=== PATIENT | female | born 1950 | race African-American/Black ===

== ENCOUNTER 2025-01-23 09:19 | Outpatient (AMB) | payer MEDICARE, MEDICAID, SELFPAY ==
--- NOTE | 2025-01-23 09:20 | MHC.PC.OV ---
Vital Signs 01/23/25 09:21 Height 5 ft 2.5 in Weight 160 lb 4 oz BMI 28.8 BP 136/78 Blood Pressure Location Lt brachial Position Sitting Respiration 16 Pulse 82 Pulse Source Pulse Oximeter Temp 96.8 F Temp Source Temporal Artery Scan Pulse Oximetry (%) 97 Oxygen Delivery Method Room Air Intake Visit Reasons: Routine-Elizabeth pt Colorer Hides And Skins Required: No Accompanied by: Self / Same As Patient Allergies fluticasone (From Flonase) Allergy (Intermediate, Verified 01/23/25 09:26) cough up blood lisinopril Allergy (Intermediate, Verified 01/23/25 09:26) cough up blood losartan Allergy (Intermediate, Verified 01/23/25 09:) cough up blood Penicillins Allergy (Verified 01/23/25 09:26) Unknown Medication List - Last Reconciled 01/23/25 by Susan Johnson MD albuterol sulfate 90 mcg/actuation 2 puffs inhalation Q4H PRN amlodipine 10 mg PO DAILY cholecalciferol (vitamin D3) 50 mcg PO DAILY diclofenac sodium 1% 2 grams topical QID ipratropium-albuterol 0.5 mg-3 mg(2.5 mg base)/3 mL mL inhalation QID PRN ketoconazole 2% topical Q3D ketorolac 0.5% 1 drp ophthalmic (eye) metoprolol succinate ER 50 mg PO DAILY propylene glycol 0.6% (Systane Complete) 1 drp ophthalmic (eye) BID PRN rosuvastatin 5 mg PO DAILY warfarin mg PO Tobacco use date assessed: 01/23/25 Fall risk assessment: No Falls in past year Last assessed Fall Risk: 01/23/25 Dental Screening Dental Screen Date: 01/23/25 Did you have a dental visit in the last 12 months?: Yes Did you have a dental problem in the last 6 months where you did not have access to dental care?: No Was dental information given to patient?: Patient has dentist HPI HPI Comments History of Present Illness Details The patient is a 74 year old individual presenting to re-establish care and to discuss multiple medical concerns. Low back pain: The patient has experienced sharp lower back pain with spasms for a few months, beginning before October. The patient reports a sensation of warmth in the area and has not had an X-ray during a previous evaluation. For pain management, the patient has been using a hot water bottle, which resulted in a surface burn on the back. Dizziness: The patient recently started experiencing dizziness, particularly with positional changes such as moving too fast or bending over. The patient denies feeling dizzy while walking and reports adequate hydration, drinking about seven cups of water daily. There has been an associated mild headache or head pressure. Superficial burn: The patient sustained a superficial burn on the back from the direct application of a hot water bottle used for pain relief. Atrial fibrillation/CKD stage III/hyperparathyroidism: The patient has a history of atrial fibrillation, managed by Dr. Pulido at [facility] and is taking warfarin 1 mg daily with a last reported INR of 2.4. Chronic kidney disease is managed by Dr. Boateng, and renal function is reported as stable. Past labs showed a slightly high parathyroid level, but calcium was normal. The patient is followed for COPD and sleep apnea, using an ASV machine which has improved tiredness, and also uses a nebulizer as needed. Hypertension is managed with metoprolol 50 mg and amlodipine 10 mg daily. Hyperlipidemia is treated with rosuvastatin 5 mg. Social History: - Functional Status: The patient has reduced some activities, such as taking out barrels, due to back pain. - Home Support: The patient receives home help on Mondays for 1.5 hours and Wednesdays for 1 hour. - Exercise: The patient performs simple exercises and stretches at home and walks short distances in the neighborhood, being careful not to overexert. - Diet: The patient is disciplined with diet, monitoring sodium intake and avoiding high-sugar or high-fat snacks. - Hydration: The patient reports drinking approximately seven cups of water daily. Diagnostic Results: - Labs (from prior visit at [facility]): Calcium was normal; parathyroid hormone was slightly elevated. - INR: Last reading was 2.4- pt is established with [facility] - Imaging: A prior mammogram abnormality has since resolved on follow-up imaging- done at [facility] Medical History (Updated 01/23/25 @ 17:27 by Susan Johnson MD) Hyperparathyroidism COPD (chronic obstructive pulmonary disease) Stroke Dysarthria, post-stroke Atrial fibrillation Pacemaker Lower back pain AUREA (obstructive sleep apnea) Iron deficiency anemia Congestive heart failure CKD (chronic kidney disease), stage III Primary hypertension Surgical History (Updated 01/23/25 @ 09:50 by Susan Johnson MD) H/O: hysterectomy Social History Housing: House Patient Tobacco Use Status: Never used Tobacco e-Cigarette/Vaping Use: Never Used Current occupational status: retired Questionnaire PHQ-9 Over the last 2 weeks, how often have you been bothered by any of the following problems? 1. Little interest or pleasure in doing things: not at all 2. Feeling down, depressed, or hopeless: not at all 3. Trouble falling or staying asleep, or sleeping too much: not at all 4. Feeling tired or having little energy: not at all 5. Poor appetite or overeating: not at all 6. Feeling bad about yourself - or that you are a failure or have let yourself or your family down: not at all 7. Trouble concentrating on things, such as reading the newspaper or watching television: not at all 8. Moving or speaking so slowly that other people could have noticed. Or the opposite - being so fidgety or restless that you have been moving around a lot more than usual: not at all 9. Thoughts that you would be better off or of hurting yourself in some way: not at all Total score: 0 Depression Screening Interpretation: Negative Depression Screening Done: Yes 63350 - PHQ-9 Billing: Yes Source: Developed by Drs. Samir Tineo, Flower Spaulding, Gordo Crystal and colleagues, with an educational felicita from [employer]. AUDIT C Alcohol Use Questionnaire (AUDIT-C) 1. How often do you have a drink containing alcohol?: Never 3. How often do you have six or more drinks on one occasion?: Never Total Score: 0 Review of Systems Narrative Review of Systems - Constitutional: Reports feeling better and denies fatigue -Neurological: Reports intermittent dizziness with positional changes and mild headache/head pressure. - Musculoskeletal: Reports sharp lower back pain with spasms and warmth. - Integumentary: Denies active issues but reports a history of scalp itching. Physical exam (Primary Care) Vital Signs: Last Vital Signs Temp 96.8 F 01/23/25 09:21 Pulse 82 01/23/25 09:21 Resp 16 01/23/25 09:21 BP 136/78 01/23/25 09:21 Pulse Ox 97 01/23/25 09:21 Oxygen Delivery Method Room Air 01/23/25 09:21 BMI result Body Mass Index 28.8 Tobacco/Smoking Status: Tobacco use Status Tobacco use date assessed 01/23/25 01/23/25 09:26 Patient Tobacco Use Status Never used Tobacco 01/23/25 09:33 e-Cigarette/Vaping Use Never Used 01/23/25 09:33 PHQ-9: PHQ-9 Score PHQ-9: Total score 0 01/23/25 10:29 Depression Screening Interpretation: Negative Narrative Physical Exam - Head/Ears/Nose/Throat: Bilateral ears are clear, without fluid. - Lungs: Clear to auscultation bilaterally, no wheezing. - Cardiovascular: Normal heart sounds, regular beat, and a soft murmur noted. - Abdomen: Soft with normal bowel sounds, non-tender, non distended. - Extremities: No swelling. - Back: Presence of a superficial burn; patient reports deep pain with palpation. Coding Level of Care Code Est Pt Level 5 (15792) Complex visit Add On G2211 Diagnoses Low back pain without sciatica, unspecified back pain laterality, unspecified chronicity M54.50 Chronicity: unspecified Back pain laterality: unspecified Sciatica presence: without sciatica Hyperparathyroidism E21.3 Atrial fibrillation I48.91 Primary hypertension I10 CKD (chronic kidney disease), stage III N18.30 Additional Codes PHQ-9 - 60217 - PHQ-9 Billing: Yes ([id number]) Time Spent (min) 48 Comment chart review, document prep, counseling, ordering of tests, physical examination Assessment & Plan Assessment & Plan (1) Lower back pain: Code(s): M54.50 - Low back pain, unspecified Category: Medical Qualifiers: Chronicity: unspecified Back pain laterality: unspecified Sciatica presence: without sciatica Qualified Code(s): M54.50 - Low back pain, unspecified (2) Hyperparathyroidism: Code(s): E21.3 - Hyperparathyroidism, unspecified Category: Medical (3) Atrial fibrillation: Code(s): I48.91 - Unspecified atrial fibrillation Category: Medical (4) Primary hypertension: Code(s): I10 - Essential (primary) hypertension Category: Medical (5) CKD (chronic kidney disease), stage III: Code(s): N18.30 - Chronic kidney disease, stage 3 unspecified Category: Medical Plan Assessment and Plan 1. Low Back Pain - An X-ray of the lumbar spine will be ordered. 2. Dizziness - The symptoms are consistent with positional dizziness. - The patient is advised to move slowly when changing positions. - Lab work will be ordered to check electrolytes. 3. Superficial Burn of the Back - This is a result of using a hot water bottle directly on the skin. - The burn does not appear infected. - A prescription for sulfadiazine cream will be sent to the pharmacy to aid in healing. - The patient was counseled on using a towel as a barrier for heat application in the future. 4. Chronic Conditions Management (Atrial Fibrillation, CKD, COPD, Sleep Apnea, HTN, Hyperlipidemia) - The patient is stable on current medications and will continue management with specialists. - The prescription for the nebulizer solution will be resent to the pharmacy. - A request will be made for recent sleep clinic notes. - Labs will be drawn to recheck parathyroid levels among other values. 5. Health Maintenance - The patient will follow up in three months for continued management. Plan - Order lumbar spine X-ray to evaluate chronic low back pain. - Order labs, including electrolytes and a recheck of parathyroid hormone. - Prescribe sulfadiazine cream 1% for the superficial burn on the back, to be applied twice daily for one week. 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 Will evaluate further if ongoing. Discussion Notes I have discussed the plan to re-establish care and manage the patient's ongoing health concerns. I explained that the dizziness is likely positional and advised the patient to move slowly to prevent symptoms. We discussed the superficial burn on the patient's back, which was caused by a hot water bottle; I advised against direct heat application and prescribed a cream to help it heal. I informed the patient that I am ordering a lower back X-ray to investigate the chronic pain and lab work to check electrolytes and other values. Patient Instructions - Please have your blood drawn today in the lab. - An X-ray of your lower back has been ordered to help figure out the cause of your pain. - A prescription for Silvadene cream has been sent to your pharmacy. Apply a thin layer to the burn on your back two times a day for about a week to help it heal. - To help with dizziness, make sure to get up slowly from sitting or lying down. Avoid bending forward or making other quick motions. Orders: Orders Magnesium Today D50.9 - Iron deficiency anemia, unspecified, E21.3 - Hyperparathyroidism, unspecified, I10 - Essential (primary) hypertension, I48.91 - Unspecified atrial fibrillation, I50.9 - Heart failure, unspecified, N18.30 - Chronic kidney disease, stage 3 unspecified TSH reflex Free T4 Today D50.9 - Iron deficiency anemia, unspecified, E21.3 - Hyperparathyroidism, unspecified, I10 - Essential (primary) hypertension, I48.91 - Unspecified atrial fibrillation, I50.9 - Heart failure, unspecified, N18.30 - Chronic kidney disease, stage 3 unspecified Hemoglobin A1c Today I10 - Essential (primary) hypertension, N18.30 - Chronic kidney disease, stage 3 unspecified XR lumbar spine 2-3V Today M54.50 - Low back pain, unspecified Complete Blood Count Auto Diff Today D50.9 - Iron deficiency anemia, unspecified, E21.3 - Hyperparathyroidism, unspecified, I10 - Essential (primary) hypertension, I48.91 - Unspecified atrial fibrillation, I50.9 - Heart failure, unspecified, N18.30 - Chronic kidney disease, stage 3 unspecified Comprehensive Met. Panel Today D50.9 - Iron deficiency anemia, unspecified, E21.3 - Hyperparathyroidism, unspecified, I10 - Essential (primary) hypertension, I48.91 - Unspecified atrial fibrillation, I50.9 - Heart failure, unspecified, N18.30 - Chronic kidney disease, stage 3 unspecified IRON PROFILE Today D50.9 - Iron deficiency anemia, unspecified, E21.3 - Hyperparathyroidism, unspecified, I10 - Essential (primary) hypertension, I48.91 - Unspecified atrial fibrillation, I50.9 - Heart failure, unspecified, N18.30 - Chronic kidney disease, stage 3 unspecified Ferritin Today D50.9 - Iron deficiency anemia, unspecified, E21.3 - Hyperparathyroidism, unspecified, I10 - Essential (primary) hypertension, I48.91 - Unspecified atrial fibrillation, I50.9 - Heart failure, unspecified, N18.30 - Chronic kidney disease, stage 3 unspecified Vitamin B12 Today D50.9 - Iron deficiency anemia, unspecified, E21.3 - Hyperparathyroidism, unspecified, I10 - Essential (primary) hypertension, I48.91 - Unspecified atrial fibrillation, I50.9 - Heart failure, unspecified, N18.30 - Chronic kidney disease, stage 3 unspecified Vitamin D 25-OH Total Today D50.9 - Iron deficiency anemia, unspecified, E21.3 - Hyperparathyroidism, unspecified, I10 - Essential (primary) hypertension, I48.91 - Unspecified atrial fibrillation, I50.9 - Heart failure, unspecified, N18.30 - Chronic kidney disease, stage 3 unspecified Folate Today D50.9 - Iron deficiency anemia, unspecified, E21.3 - Hyperparathyroidism, unspecified, I10 - Essential (primary) hypertension, I48.91 - Unspecified atrial fibrillation, I50.9 - Heart failure, unspecified, N18.30 - Chronic kidney disease, stage 3 unspecified Parathyroid Hormone Intact Today E21.3 - Hyperparathyroidism, unspecified Medications: New ketoconazole 2% 1 appl topical Q3D 120 mL 11RF ipratropium-albuterol 0.5 mg-3 mg(2.5 mg base)/3 mL 3 mL inhalation QID PRN 180 mL 11RF dyspnea J44.9 - Chronic obstructive pulmonary disease, unspecified silver sulfadiazine 1% apply a 1.5 mm thickness 1 appl topical BID 50 grams 0RF back burn Patient Instructions: GET LABS TODAY GET XRAYS
[2025-01-23 09:21] VITALS: BP 136/78; PULSE 82; RESP 16; TEMP 36; O2SAT 97; BMI 28.8
--- OUTSIDE RECORDS SUMMARY | 2025-01-23 12:04 | XMS_ITS | Encounter Summary ---
Author Organization [facility] Address [address] [facility] [address] [address] [place] [address] Phone Care Team Providers Care Mirror Installer Name Role Phone Susan Johnson MD Primary Care Provider [phone]- [phone] Encounter Details Date Type Department Care Team (Late Contact Info) Description 08/12/2020 Orders Only [facility] [address] [facility] [address] [place] [phone] Jignesh Cox MD [address] [facility] [address] [place] [phone] Hypertensive chronic kidney disease, unspecified, with chronic kidney disease stage I through stage IV, or unspecified; Stage 3b chronic kidney disease (HCC) Social History Tobacco Use Types Packs/Day Years Used Date Smoking Tobacco: Never Smokeless Tobacco: Never Alcohol Use Standard Drinks/Week Comments No 0 (1 standard drink = 0.6 oz pur e alcohol) Comments Unknown Sex and Gender Information Value Date Recorded Sex Assigned at Not on file Legal Sex Female 5:08 PM EST Gender Identity Not on file Sexual Orientation Not on file documented as of this encounter Plan of Treatment Upcoming Encounters Date Type Department Care Team (Late st Contact Info) Description 04/23/2025 1:30 PM EST Office Visit [facility], [address] [place] [phone] Manny Boateng MD [address] [place] [address] documented as of this encounter Procedures Procedure Name Priority Date/Time Associated Diagnosis Comments PROTEIN / CREATININE RATIO, URINE Routine 10/21/2020 10:21 AM EDT Hypertensive chronic kidney disease, unspecified, with chronic kidney disease stage I through stage IV, or unspecified Stage 3b chronic kidney disease (HCC) VITAMIN D 25 HYDROXY Routine 10/21/2020 10:21 AM EDT Hypertensive chronic kidney disease, unspecified, with chronic kidney disease stage I through stage IV, or unspecified Stage 3b chronic kidney disease (HCC) PTH, INTACT Routine 10/21/2020 10:21 AM EDT Hypertensive chronic kidney disease, unspecified, with chronic kidney disease stage I through stage IV, or unspecified Stage 3b chronic kidney disease (HCC) MAGNESIUM Routine 10/21/2020 10:21 AM EDT Hypertensive chronic kidney disease, unspecified, with chronic kidney disease stage I through stage IV, or unspecified Stage 3b chronic kidney disease (HCC) RENAL FUNCTION PANEL Routine 10/21/2020 10:21 AM EDT Hypertensive chronic kidney disease, unspecified, with chronic kidney disease stage I through stage IV, or unspecified Stage 3b chronic kidney disease (HCC) documented in this encounter Results * Magnesium (10/21/2020 10:21 AM EDT) Magnesium 2.1 (1.6-2.3) mg/dL [facility] Comment: Testing performed or reported by [facility], a Service of [facility], [address] [place] [address] Megha Arauz MD, Software Development Intern [facility]# [id number] Blood specimen (specimen) Venous blood / Unknown 10/21/2020 10:21 AM EDT 10/21/2020 10:22 AM EDT us Jignesh Cox MD LAB BLOOD ORDERABLES Final Resu lt [facility] * PTH, intact (10/21/2020 10:21 AM EDT) PTH, Intact 48 (15-65) PG/ML [facility] Comment: Testing performed or reported by [facility], a Service of [facility], [address] [place] [address] Megha Arauz MD, Software Development Intern CLIA# [id number] Blood specimen (specimen) Venous blood / Unknown 10/21/2020 10:21 AM EDT 10/21/2020 10:22 AM EDT Jignesh Cox MD LAB BLOOD ORDERABLES Final Resu lt Performing Organization Address [facility] Co de Phone Number [facility] * (ABNORMAL) Vitamin D 25 hydroxy (10/21/2020 10:21 AM EDT) Vitamin D, 25-Hydroxy 58.7(H) (20-50) NG/ML [facility] Comment: Testing performed or reported by [facility], a Service of [facility], [address] [place] [address] Megha Arauz MD, Software Development Intern CLIA# [id number] Blood specimen (specimen) Venous blood / Unknown 10/21/2020 10:21 AM EDT 10/21/2020 10:22 AM EDT us Jignesh Cox MD LAB BLOOD ORDERABLES Final Resu lt Performing Organization Address [facility] Co de Phone Number [facility] * Urine Protein / creatinine ratio (10/21/2020 10:21 AM EDT) Protein/Creat ine Ratio Unable to calculate (0-0.2) [facility] Protein, Urine <4 MG/DL [facility] Creatinine, Urine 32.8 MG/DL [facility] Comment: Testing performed or reported by [facility], a Service of [address] [address] Megha Arauz MD, Software Development Intern CLIA# [id number] Urine specimen (specimen) Urine specimen obtained by clean catch procedure / Unknown 10/21/2020 10:21 AM EDT 10/21/2020 10:23 AM EDT us Jignesh Cox MD LAB URINE ORDERABLES Final Resu lt [facility] * (ABNORMAL) Renal function panel (10/21/2020 10:21 AM EDT) Glucose 87 (70-99) MG/DL [facility] BUN 30(H) (8-23) MG/DL [facility] Creatinine 1.5(H) (0.5-1.0) MG/DL [facility] Sodium 143 (133-145) MMOL/L [facility] Potassium 4.5 (3.6-5.2) MMOL/L [facility] Chloride 104 (98-107) MMOL/L [facility] Bicarbonate (CO2) 29 (22-29) MMOL/L [facility] Anion Gap 10 (4-17) [facility] Albumin 4.1 (3.4-4.8) GM/DL [facility] Calcium 10.0 (8.6-10.5) MG/DL [facility] Phosphorus, Serum 3.4 (2.5-4.5) MG/DL [facility] Est GFR Non 36 ML/MIN/1.7 3 M2 [facility] Comment: Creatinine based estimated glomerular filtration rate (eGFR) is calculated using the Chronic Kidney Disease Epidemiology Collaboration (CKD-EPI). The CKD-EPI creatinine equation has not been validated in children (<18 years), women or in some racial or ethnic subgroups other than Caucasians and Americans. EST GFR 42 ML/MIN/1.7 3 M2 [facility] Comment: Creatinine based estimated glomerular filtration rate (eGFR) is calculated using the Chronic Kidney Disease Epidemiology Collaboration (CKD-EPI). The CKD-EPI creatinine equation has not been validated in children (<18 years), women or in some racial or ethnic subgroups other than Caucasians and Americans. Testing performed or reported by [facility], a Service of [facility], [address] [place] [address] Megha Arauz MD, Software Development Intern [facility]# [id number] Blood specimen (specimen) Venous blood / Unknown 10/21/2020 10:21 AM EDT 10/21/2020 10:22 AM EDT us Jignesh Cox MD LAB BLOOD ORDERABLES Final Resu lt [facility] documented in this encounter Visit Diagnoses Diagnosis Hypertensive chronic kidney disease, unspecified, with chronic kidney disease stage I through stage IV, or unspecified Stage 3b chronic kidney disease (HCC) documented in this encounter Care Teams Mirror Installer Relationship Specialty Start Date End Date Susan Johnson MD [address] [place], [place] PCP - General 03/16/20 documented as of this encounter
--- OUTSIDE RECORDS SUMMARY | 2025-01-23 12:04 | XMS_ITS | Encounter Summary ---
Author Organization [facility] Address [address] [place] [address] Phone Care Team Providers Care Crab Fisherman Name Role Phone Susan Johnson MD Primary Care Provider [phone]- [phone] Encounter Details Date Type Department Care Team (Late st Contact Info) Description 06/04/2021 Documentation Only [facility] [address] [place] [phone] Edinson Munoz MD Social History Tobacco Use Types Packs/Day Years [...] Visit [facility] [address] [place] [address] Manny Boateng MD [address] [place] [address] [place] [phone] documented as of this encounter Visit Diagnoses Not on filedocumented in this encounter Care Teams Crab Fisherman Relationship Specialty Start Date End Date Susan Johnson MD [address] [place], [place] PCP - General 03/16/20 documented as of this encounter
--- OUTSIDE RECORDS SUMMARY | 2025-01-23 12:04 | XMS_ITS | Encounter Summary ---
Author Organization [facility] Address [address] [place] [address] Phone Care Team Providers Care Parts Sales Manager Name Role Phone Susan Johnson MD Primary Care Provider +1- [phone] Encounter Details Date Type Department Care Team (Late st Contact Info) Description 06/10/2021 Documentation Only [facility] [address] [place] [address] Manny Boateng MD [address] [place] [address] Dr. Candelaria [place] [address] Social History Tobacco Use Types Packs/Day Years [...] Visit [facility] [address] [place] [address] Manny Boateng MD [address] [place] [address] Dr. Candelaria [place] [address] documented as of this encounter Visit Diagnoses Not on filedocumented in this encounter Care Teams Parts Sales Manager Relationship Specialty Start Date End Date Susan Johnson MD [address] [place], [place] PCP - General 03/16/20 documented as of this encounter
--- OUTSIDE RECORDS SUMMARY | 2025-01-23 12:04 | XMS_ITS | Encounter Summary ---
Author Organization [facility] Address [address] [place] [address] Phone Care Team Providers Care Research Engineer Marine Equipment Name Role Phone Susan Johnson MD Primary Care Provider +1- [phone] Encounter Details Date Type Department Care Team (Late st Contact Info) Description 12/20/2021 Documentation Only [facility] [address] [place] [address] Manny Boateng MD [address] [place] [address] [place] [address] Social History Tobacco Use Types [...] on file documented as of this encounter Functional Status documented as of this encounter Plan of Treatment Upcoming Encounters Date Type Department Care Team (Late st Contact Info) Description 04/23/2025 1:30 PM EST Office Visit [facility] [address] [place] [address] Manny Boateng MD [address] [place] [address] [place] [address] documented as of this encounter Visit Diagnoses Not on filedocumented in this encounter Care Teams Research Engineer Marine Equipment Relationship Specialty Start Date End Date Susan Johnson MD [address] [place], [place] PCP - General 03/16/20 documented as of this encounter
--- OUTSIDE RECORDS SUMMARY | 2025-01-23 12:04 | XMS_ITS | Encounter Summary ---
Author Organization [facility] Address [address] [place] [address] Phone Care Team Providers Care 3D Modeler Name Role Phone Susan Johnson MD Primary Care Provider +1- [phone] Encounter Details Date Type Department Care Team (Late st Contact Info) Description 12/20/2021 Documentation Only [facility] [address] [place] [address] Manny Boateng MD [address] [place] [address] [place] [address] Social History Tobacco Use Types [...] Visit [facility] [address] [place] [address] Manny Boateng MD [address] [place] [address] [place] [address] documented as of this encounter Visit Diagnoses Not on filedocumented in this encounter Care Teams 3D Modeler Relationship Specialty Start Date End Date Susan Johnson MD [address] [place], [place] PCP - General 03/16/20 documented as of this encounter
--- OUTSIDE RECORDS SUMMARY | 2025-01-23 12:04 | XMS_ITS | Clinical Summary ---
Author Organization [facility], Address [address] [place] [address] [place] [address] Phone Care Team Providers Care Jump Iron Machine Presser Name Role Phone Susan Johnson MD Primary Care Provider +1- [phone] Allergies Active Allergy Reactions Criticality Noted Date Comments Fluticasone 02/07/2020 Lisinopril 02/07/2020 Losartan 02/07/2020 Penicillin G Other (see comments) 07/29/2020 Penicillins Other (see comments) 04/07/2020 Medications albuterol HFA (ProAir HFA) 108 (90 Base) MCG/ACT inhaler 2 puffs by Other route Active Cholecalciferol 50 MCG (2000 UT) capsule Take 1 capsule by mouth every other day Active latanoprost (XALATAN) 0.005 % ophthalmic solution Active metoprolol succinate XL (TOPROL-XL) 50 MG 24 hr tablet Take 1 tablet by mouth 1 (one) time each day Active warfarin (COUMADIN) 1 MG tablet Take 1 tablet by mouth Active rosuvastatin (CRESTOR) 5 MG tablet Take 10 mg by mouth Active acetaminophen-c odeine (TYLENOL #3) 300-30 MG per tablet TAKE 1 TO 2 TABLETS BY MOUTH THREE TIMES DAILY FOR PAIN 0 Active Diclofenac Sodium 1 % gel Apply topically 4 (four) times a day if needed Active ipratropium-alb uterol (DUO-NEB) 0.5-2.5 mg/3 mL nebulizer solution INHALE 1 VIAL VIA NEBULIZER FOUR TIMES DAILY NEEDED FOR SHORTNESS OF BREATH 2 Active amLODIPine (NORVASC) 10 MG tablet Take 10 mg by mouth 1 (one) time each day 3 Active Active Problems Problem Noted Date Diagnosed Date Hypertensive chronic kidney disease stage 3 10/05 Acute nontraumatic kidney injury 04/07/2020 Stage 3a chronic kidney disease 04/07/2020 Essential hypertension 04/07/2020 Hyperparathyroidism due to renal insufficiency 0 04/07/2020 Renal disorder due to type 2 diabetes mellitus 0 04/07/2020 Immunizations Immunization Administration Dates Next Due Influenza Split High Dose Preservative Free IM 1 Pneumococcal Polysaccharide 08/05/2013, 4 Family History Medical History Relation Comments Hypertension Father Heart disease Mother Hypertension Mother Stroke Mother Relation Status Comments Father Mother Alive Social History Tobacco Use Types Packs/Day Years Used Date Smoking Tobacco: Never Smokeless Tobacco: Never Alcohol Use Standard Drinks/Week Comments No 0 (1 standard drink = 0.6 oz pur e alcohol) Comments Unknown Sex and Gender Information Value Date Recorded Sex Assigned at Not on file Legal Sex Female 5:08 PM EST Gender Identity Not on file Sexual Orientation Not on file Last Filed Vital Signs Vital Sign Reading Time Taken Comments Blood Pressure 144/74 04/24/2024 1:52 PM EST Pulse 60 10/26/2020 9:37 AM EDT Temperature - - Respiratory Rate - - Oxygen Saturation - - Inhaled Oxygen Concentration - - Weight 76.5 kg (168 lb 9.6 oz) 10/26/2020 9:37 A M EDT Height 157.5 cm (5' 2 ) 09/09/2019 12:00 PM EDT Body Mass Index 30.84 09/09/2019 12:00 PM EDT Plan of Treatment Upcoming Encounters Date Type Department Care Team (Late st Contact Info) Description 04/23/2025 1:30 PM EST Office Visit [facility], [address] [place] [address] Manny Boateng MD [address] [place] [address] Health Maintenance Due Date Last Done Comments Diabetes: Hemoglobin A1C 04/06/2020 Diabetes: Ophthalmology Exam 04/06/2020 Diabetes: Pedal Pulse Checked 04/06/2020 Diabetes: Sensory Foot Exam 04/06/2020 Diabetes: Visual Foot Exam 04/06/2020 Influenza Vaccine (#1) 2024 , 01/03/2020, 12/21/2018 Pneumococcal Vaccine: 50+ Years Completed 09/29/2016, 02/24/2015, 08/05/2013, Additional history exists Pneumococcal Vaccine: Peds (0 to 5 Years) and At-Risk Patients (6 to 49 Years) Discontinued 09/29/2016, 02/24/2015, 08/05/2013, Additional history exists Hepatitis B Vaccine Aged Out No longe r eligible based on patient's age to complete this topic Insurance Medicaid [place] Medicare Medicaid [place] Medicare Care Teams Jump Iron Machine Presser Relationship Specialty Start Date End Date Susan Johnson MD [facility] [place], [place] PCP - General 03/16/20
--- OUTSIDE RECORDS SUMMARY | 2025-01-23 12:04 | XMS_ITS | Encounter Summary ---
Author Organization [facility] Address [address] [place] [address] Phone Care Team Providers Care Recycling Collections Driver Name Role Phone Susan Johnson MD Primary Care Provider +1- [phone] Encounter Details Date Type Department Care Team (Late st Contact Info) Description 12/20/2021 Documentation Only [facility] [address] [place] [address] Manny Boateng MD [address] [place] [address] [place] [address] Social History Tobacco Use Types [...] Visit [facility] [address] [place] [address] Manny Boateng MD [address] [place] [address] [place] [address] documented as of this encounter Visit Diagnoses Not on filedocumented in this encounter Care Teams Recycling Collections Driver Relationship Specialty Start Date End Date Susan Johnson MD [address] [place], [place] PCP - General 03/16/20 documented as of this encounter
== END 2025-01-23 10:36 | disposition home or self-care (01) ==
LOC: HO.HMCHD 09:19
PROVIDERS: PCP Internal Medicine; Visit Provider Internal Medicine
DX: M54.50 Low back pain, unspecified (principal); E21.3 Hyperparathyroidism, unspecified; I48.91 Unspecified atrial fibrillation; I10 Essential (primary) hypertension; N18.30 Chronic kidney disease, stage 3 unspecified

== ENCOUNTER 2025-01-23 10:55 | Outpatient (REF) | payer MEDICARE, MEDICAID, SELFPAY ==
[2025-01-23 13:12] LABS: MANUAL DIFF FLAG NO
[2025-01-23 13:18] LABS: Hematocrit 44.9 % (37.0-47.0); Hemoglobin 14.5 g/dl (12.0-16.0); Imm Gran Abs Auto 0.01 X10*3/uL (0.00-0.03); Imm Gran Pct Auto 0.1 % (0.0-0.4); Lymphocytes Absolute Auto 1.5 X10*3/uL (1.2-4.9); Mean Corpuscular HGB Conc 32.3 g/dl (31.0-35.0); Mean Corpuscular Hemoglobin 31.5 pg (27.0-33.0); Mean Corpuscular Volume 97.6 fL (80.0-98.0); NRBC Abs Auto 0.000 X10*3/uL (0.0-0.012); NRBC Pct Auto 0.0 /100WBC (0.0-0.2); Platelet Count 234 X10*3/uL (160-400); Red Blood Count 4.60 X10*6/uL (4.20-5.50); White Blood Count 6.7 X10*3/uL (4.8-10.8)
[2025-01-23 13:58] LABS: Parathyroid Hormone Intact 257.9 pg/mL (8.7-77.1)
[2025-01-23 14:12] LABS: Alanine Aminotransferase 23 U/L (0-31); Albumin Level 4.7 g/dL (3.5-5.0); Alkaline Phosphatase 108 U/L (39-117); Anion Gap 14 (12-20); Aspartate Amino Transferase 36 U/L (5-31); Blood Urea Nitrogen 21 mg/dL (9-16); Calcium 10.5 mg/dL (8.4-10.2); Carbon Dioxide 26 mmol/L (22-29); Chloride 107 mmol/L (96-108); Estimated Glomerular Filt Rate 48; Iron 72 mcg/dL (30-160); Magnesium 2.6 mg/dL (1.6-2.6); Percent Iron Saturation 29 % (15-50); Potassium 5.0 mmol/L (3.3-5.1); Sodium 142 mmol/L (135-145); Total Iron Binding Capacity 250 mcg/dL (228-428); Total Protein 8.3 g/dL (6.5-8.0); Unsaturated Iron Binding 178 ug/dL
[2025-01-23 14:29] LABS: Folate 12.2 ng/mL (> or = 4.0); Vitamin B12 442 pg/mL (200-900)
[2025-01-23 14:33] LABS: Ferritin 39 ng/mL (10-250)
--- OUTSIDE RECORDS SUMMARY | 2025-01-23 16:34 | XMS_ITS | Clinical Summary ---
Author Organization [address] [place] [address] Address [address] [place] [address] Phone Care Team Providers Care Applicator Sprayer Name Role Phone Susan Johnson MD Primary Care Provider [phone] Allergies Active Allergy Reactions Criticality Noted Date Comments Fluticasone 02/07/2020 Lisinopril 02/07/2020 Losartan 02/07/2020 Increased fatigue, speech disturbance Penicillins 02/07/2020 Medications propylene glycoL (Lubricant Eye, propyl glycol,) 0.6 % drops - Route: apply to the eye 2 times daily. - Ophthalmic Activ e brimonidine (ALPHAGAN) 0.2 % ophthalmic solution 1 Drop 2 times daily. Active diclofenac (VOLTAREN) 1 % topical gel Apply topically. A ctive UNABLE TO FIND DICLOFENAC 3% BACLOFEN 2% CYCLOBENZAPRINE 2 % GABAPENTIN 6 % Route: Apply 1 g topically 3 times daily. Verapamil 10%- Pentoxifylline 3%-Tranilast 1% (VPT) Cream - Apply externally Class: Historic 12/22/19 23 Active cholecalcifero l (VITAMIN D-3) 25 mcg (1,000 unit) tablet Take by mouth every other day. Active warfarin (COUMADIN) 1 mg tablet Take 1 mg by mouth See Admin Instructions. May cause heavy bleeding. Take at same time every day. Do not change dietary habits. Active albuterol sulfate (PROAIR HFA INHL) Inhale 1 Puff into the lungs as needed. Active acetaminophen with codeine (ACETAMINOPHEN -CODEINE ORAL) Take 30 mg by mouth as needed. Active ipratropium-al buteroL (DUONEB) 0.5-2.5 mg/3 mL nebulizer solution Inhale 3 mL into the lungs 4 times daily. Active amLODIPine (NORVASC) 10 mg tablet Take 1 tablet (10 mg total) by mouth 1 (one) time each day. 90 tablet 2 05/18/19 25 Active ketorolac (ACULAR) 0.5 % ophthalmic solution 1 drop 4 (four) times a day. Active metoprolol succinate (TOPROL-XL) 50 mg 24 hr tablet TAKE 1 TABLET BY MOUTH DAILY 90 tablet 1 09/03/19 25 Active rosuvastatin (CRESTOR) 5 mg tablet Take 1 tablet (5 mg total) by mouth 1 (one) time each day. 90 tablet 1 01/02/20 25 Active rosuvastatin (CRESTOR) 5 mg tablet TAKE 1 TABLET BY MOUTH DAILY 90 tablet 1 07/02/19 25 025 Discontin ued(Reord er) Active Problems Problem Noted Date Diagnosed Date CAD (coronary artery disease) 01/31/2022 HLD (hyperlipidemia) 01/31/2022 Assessment & Plan (11/21/2024 9:23 AM EDT): Last lipid panel reviewed and under excellent control, total cholesterol 155, direct LDL 73. Continue rosuvastatin as prescribed. Assessment & Plan (05/16/2024 2:45 PM EDT): Has a history of hyperlipidemia, lipid panel from June 2023 reviewed under reasonable control, LDL 76. Continue with rosuvastatin as prescribed. Atrial tachycardia (CMS/HCC V24) 12/08/2021 CHB (complete heart block) (CMS/HCC V24, CMS/HCC V28) 12/08/2021 Fatigue 07/05/2021 AUREA (obstructive sleep apnea) 07/05/2021 PAC (premature atrial contraction) 07/05/2021 Palpitations 01/14/2021 Congestive heart failure (CMS/HCC V24, CMS/HCC V 28) 11/26/2020 Overview (02/12/2024): Last Assessment & Plan: Left ventricular systolic function has become a normal after AV node ablation. She is euvolemic currently. Assessment & Plan (11/21/2024 9:24 AM EDT): Patient has a history of HFpEF, most recent echocardiogram showed a normal LV systolic function with an EF of 55-60%. She appears euvolemic on physical exam and denies symptoms of fluid retention. Her weight has been stable. Continue current medical therapy. Patient is encouraged to follow a low-sodium, heart healthy diet, monitor daily weights and contact provider with any sudden increases such as 2 lbs overnight or 4-5 lbs over the course of a week, and/or for worsening shortness of breath and/or increased lower extremity edema. Assessment & Plan (05/16/2024 2:16 PM EDT): Patient has a history of HFpEF, most recent echocardiogram in February 2023 shows normal LV size and systolic function with an LVEF of 55 to 60%. She appears euvolemic on physical exam today. She has been experiencing some chest pressure of unclear origin and there is a mild midsystolic murmur present. Will update echocardiogram to reassess cardiac function and structures. Hypertension 11/26/2020 Overview (02/12/2024): Last Assessment & Plan: BP is slightly higher today. Asked her to monitor BP at home and we may have to adjust medications. Assessment & Plan (11/21/2024 9:23 AM EDT): Blood pressure is under reasonable control in the office today at 136/80. Continue amlodipine and metoprolol as prescribed. Assessment & Plan (05/16/2024 2:17 PM EDT): Patient has a history of hypertension, blood pressure is well-controlled in the office today at 130/60. Continue with amlodipine and metoprolol as prescribed. Myocardial infarction (CMS/HCC V24, CMS/HCC V28) 11/26/2020 Atrial fibrillation (CMS/HCC V24, CMS/HCC V28) 0 07/09/2020 Overview (02/12/2024): Last Assessment & Plan: Atrial fibrillation Has become a chronic and. She is status post AV kelsey ablation with RV single-lead pacemaker implantation. Has felt much better clinically after pacemaker implantation. She has a remote CVA when she was initially diagnosed with atrial fibrillation. We had a discussion again about NOAC. She is going to think about it and let us know. Assessment & Plan (11/21/2024 9:22 AM EDT): Patient has a history of longstanding persistent atrial fibrillation s/p AV kelsey ablation and placement of a Medtronic single-chamber permanent pacemaker. She remains on warfarin for stroke risk reduction for [id number] score of 8. EKG done in the office today shows ventricular paced rhythm with underlying atrial fibrillation at a well-controlled rate of 78 bpm. Continue current medical therapy with metoprolol as prescribed. Assessment & Plan (05/16/2024 2:13 PM EDT): Patient has history of longstanding atrial fibrillation status post AV kelsey ablation with an RV single-lead pacemaker implantation. She has a [id number] score of 8, on warfarin for stroke risk reduction managed by her primary care provider. She has declined on several occasions to transition to NOAC. EKG done in the office today is a ventricular-paced rhythm at a rate of 72 bpm with underlying atrial fibrillation. No changes to current medical therapy and should continue with metoprolol for rate control. Encounters Date Type Department Care Team Description 01/07/2025 9:50 AM EST Lab Draw Station - [address] [facility] [address] [place] [address] Hyperlipidemia, unspecified hyperlipidemia type 01/06/2025 Telephone [facility] Cardiology [facility] [address] [place] [address] Sarahy Pulido MD 12/04/2024 1:25 PM EDT Ancillary Procedure [facility] [address] [place] [address] 11/27/2024 1:30 PM EDT Ancillary Procedure [facility] [address] [place] [address] Encounter for adjustment or management of cardiac device 11/21/2024 8:40 AM EDT Office Visit [facility] [address] [place] [address] Melanie Saravia NP Longstanding persistent atrial fibrillation (CMS/HCC V24, CMS/HCC V28) (Primary Dx); Congestive heart failure, unspecified HF chronicity, unspecified heart failure type (CMS/HCC V24, CMS/HCC V28); Hyperlipidemia, unspecified hyperlipidemia type; Primary hypertension from Last 3 Months Surgical History Surgery Date Site/Laterality Comments HYSTERECTOMY PROCEDURE: HISTORICAL HYSTERECTOMY Medical History Medical History Date Comments Essential hypertension DX:Essent ial hypertension Hyperlipidemia DX:Hyperlipidemi a Family history of cardiovascular disease DX:Family history of cardiovascular disease Chronic renal impairment DX:Biophysics Teacher arin renal impairment COPD, mild (CMS/HCC V24, CMS/HCC V28) DX:COPD, mild (HCC) Difficulty with speech DX:Diffic ulty with speech Dyspnea DX:Dyspnea Sleep apnea DX:Sleep apnea Stroke (CMS/HCC V24, CMS/HCC V28) DX:Stroke (HCC) Suspected COVID-19 virus infection DX:Suspected COVID-19 virus infection 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 (CMS/HCC V24, CMS/HCC V28) DX: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 (HCC) Peripheral arterial occlusiv e disease (CMS/HCC V24) DX:Peripheral arterial occlu sive disease (HCC) Hyperparathyroidism (CMS/HCC V24) DX:Hyperparathyroidism (HCC) CKD (chronic kidney disease) DX: CKD (chronic kidney disease) Family History Medical History Relation Name Comments Coronary artery disease Mother Hypertension Mother Stroke Mother Coronary artery disease Sister Relation Name Status Comments Mother Sister Alive Social History Tobacco Use Types Packs/Day Years Used Date Smoking Tobacco: Never Smokeless Tobacco: Never Tobacco Cessation:Counseling Given: Not Answered Alcohol Use Standard Drinks/Week Comments Never 0 (1 standard drink = 0.6 oz pur e alcohol) Comments Unknown Sex and Gender Information Value Date Recorded Sex Assigned at Not on file Legal Sex Female 5:16 PM EST Gender Identity Not on file Sexual Orientation Not on file Obstetrics History Last Filed Vital Signs Vital Sign Reading Time Taken Comments Blood Pressure 136/80 11/21/2024 8:20 AM EDT Pulse 78 11/21/2024 8:20 AM EDT Temperature - - Respiratory Rate - - Oxygen Saturation 99% 11/21/2024 8:20 AM EDT Inhaled Oxygen Concentration - - Weight 75.3 kg (166 lb) 11/21/2024 8:20 AM EDT Height 157.5 cm (5' 2 ) 11/21/2024 8:20 AM EDT Body Mass Index 30.36 11/21/2024 8:20 AM EDT Plan of Treatment Upcoming Encounters Date Type Department Care Team (Late st Contact Info) Description 05/22/2025 1:10 PM EDT Office Visit [facility] [address] [facility] [address] [place] [phone] Melanie Saravia NP [address] [place] [address] [place] [phone] 11/27/2025 1:00 PM EDT Ancillary Procedure [facility] [address] [facility] [address] [place] [phone] Health Maintenance Due Date Last Done Comments Diabetes: Annual Foot Exam 1960 Diabetes: Annual Retina Eye Exam 1960 Zoster Vaccines (1 of 2) 12/06/1967 Falls Risk Assessment 02/12/2022 Hepatitis C Screening 02/12/2022 Medicare Annual Wellness Visit 02/12/2022 Osteoporosis Screening (Bone Density Screening) 02/12/2022 Social Influencers of Health Screening 02/12/2022 Diabetes: Annual GFR (Glomerular Filtration Rate) 03/24/2023 03/24/2022 Hypertension/CHF/CAD Annual BMP Blood Test 03/24/2023 03/24/2022 RSV Immunization Adult Patients (1 - 1-dose 75+ series) 12/06/2023 Diabetes: Annual Urine Albumin-Creatinine Ratio (uACR) 02/29/2024 Diabetes: Blood Sugar Control Test (HGBA1C) 02/29/2024 Depression Screening 03/06/2024 DTaP,Tdap,and Td Vaccines (2 - Td or Tdap) 02/18/2025 02/18/2015 COVID-19 Vaccine (9 - Pfizer risk ) 05/31/2025 12/01/2024, 06/09/2024, 11/19/2023, Additional history exists Cholesterol Screening (Lipid Panel) 01/07/2030 01/07/2025, 06/28/2023 Pneumococcal Vaccine: 50+ Years Completed 09/29/2016, 02/24/2015, 08/05/2013, Additional history exists Colorectal Cancer Screening: FIT-DNA (Cologuard) Discontinued 02/15/2023, 02/15/2023 Influenza Vaccine Completed 12/01/2024, , 12/19/2022, Additional history exists HIB Vaccines Aged Out No longer eligi ble based on patient's age to complete this topic HPV Vaccines Aged Out No longer eligi ble based on patient's age to complete this topic Hepatitis A Vaccines Aged Out No long er eligible based on patient's age to complete this topic Hepatitis B Vaccines Aged Out No long er eligible based on patient's age to complete this topic IPV Vaccines Aged Out No longer eligi ble based on patient's age to complete this topic MMR Vaccines Aged Out No longer eligi ble based on patient's age to complete this topic Meningococcal ACWY Vaccine Aged Out N o longer eligible based on patient's age to complete this topic Meningococcal B Vaccine Aged Out No l onger eligible based on patient's age to complete this topic RSV Immunization Patients Under 20 months Aged Out No longer eligible based on patient's age to complete this topic Varicella Vaccines Aged Out No longer eligible based on patient's age to complete this topic Medical Devices Implanted Type Area Associate Store Leader Device Identifier Shelf Expiration Date Model / Serial / Lot Medt-Card Dike Xt Sr Mri [id number] Implanted: (Quantity not on file) Cardiac Pacemaker MEDTRONIC - CARDIAC RHYTH-CRDM TOSHA XT SR MRI [id number] / [id number] / Medt-Card Tosha Xt Sr Mri [id number] Implanted: (Quantity not on file) Cardiac Pacemaker MEDTRONIC - CARDIAC RHYTH-CRDM TOSHA XT SR MRI / [id number] / Procedures Procedure Name Priority Date/Time Associated Diagnosis Comments LIPID PANEL WITH REFLEX TO DIRECT LDL Routine 01/07/2025 9:51 AM EST Hyperlipidemia, unspecified hyperlipidemia type CARDIAC DEVICE CHECK- REMOTE- MURJ Routine 12/04/2024 1:24 PM EDT CARDIAC DEVICE CHECK- IN CLINIC- MURJ Routine 11/27/2024 2:09 PM EDT Encounter for adjustment or management of cardiac device ECG 12-LEAD Routine 11/21/2024 9:26 AM EDT Longstanding persistent atrial fibrillation (CMS/HCC V24, CMS/HCC V28) ANNUAL BMP BLOOD TEST Routine 03/24/2022 from Last 3 Months or Most Recently Relevant to Health Maintenance Results * Lipid panel with reflex to direct LDL (01/07/2025 9:51 AM EST) [facility] Cholesterol 152 0 - 200 mg/dL LAB CHEMISTRY METHOD 01/07/2025 2:20 PM [facility] Triglycerides 86 0 - 150 mg/dL LAB CHEMISTRY METHOD 01/07/2025 2:20 PM [facility] HDL 67 >=40 mg/dL LAB CHEMISTRY METHOD 01/07/2025 2:20 PM [facility] LDL Calculated 68 0 - 100 mg/dL LAB CHEMISTRY METHOD 01/07/2025 2:20 PM [facility] Comment:Estimated LDL Calcul ated using equation: Total cholesterol - HDL cholesterol - (Triglycerides/5) VLDL Cholesterol George 17.2 mg/dL LAB CHEMISTRY METHOD 01/07/2025 2:20 PM [facility] Non HDL Chol. (LDL+VLDL) 85 <145 mg/dL LAB CHEMISTRY METHOD 01/07/2025 2:20 PM [facility] Chol/HDL Ratio 2.3 0.0 - 4.4 LAB CHEMISTRY METHOD 01/07/2025 2:20 PM [facility] Blood Venous blood specimen / Unknown Venipuncture / Unknown 01/07/2025 9:51 AM EST 01/07/2025 11:22 AM EST us Sarahy Pulido MD LAB BLOOD ORDERABLES Final Resul t AYLIN CAMARA MD ([facility] [address] [place] [address], * Cardiac device check - Remote- MURJ (12/04/2024 1:24 PM EDT) Date Time Interrogation Session [id number] CV DEVICE CHECK Type Interrogation Session Remote CV DEVICE CHECK Implantable Pulse Generator Associate Store Leader MDT CV DEVICE CHECK Implantable Pulse Generator Type IPG CV DEVICE CHECK Implantable Pulse Generator Model Dike XT SR MRI [id number] CV DEVICE CHECK Implantable Pulse Generator Serial Number [id number] CV DEVICE CHECK Implantable Pulse Generator Implant Date 20211022 CV DEVICE CHECK Battery Remaining Longevity 121.0 CV DEVICE CHECK Battery Voltage 3.020 CV D EVICE CHECK Battery COMPUTER SYSTEMS DESIGN ANALYST Trigger 2.625 CV DEVICE CHECK Battery Status Middle of Service CV DEVICE CHECK [place] Statistic RV Percent Paced 99.98 CV DEVICE CHECK Lead Channel Sensing Intrinsic Amplitude 2.375 CV DEVICE CHECK Lead Channel Setting Sensing Sensitivity 0.90 CV DEVICE CHECK Lead Channel Impedance Value 475 CV DEVICE CHECK Lead Channel Pacing Threshold Amplitude 0.750 CV DEVICE CHECK Lead Channel Pacing Threshold Pulse Width 0.4 CV DEVICE CHECK Lead Channel RV Pacing Threshold Date 2024-11-27 CV DEVICE CHECK Lead Channel Setting Pacing Amplitude 2.000 CV DEVICE CHECK Lead Channel Setting Pacing Pulse Width 0.4 CV DEVICE CHECK [place] Setting Mode (NBG Code) VVIR CV DEVICE CHECK [place] Setting Lower Rate Limit 70 CV DEVICE CHECK [place] Setting Maximum Sensor Rate 120 CV DEVICE CHECK Zone Setting Type Category VT CV DEVICE CHECK Rate 167 CV DEVICE CHECK Zone Setting Status ENABLED CV DEVICE CHECK Zone ID 6 CV DEVICE CHECK Date of Service 2024-12-06 CV DEVICE CHECK Anatomical Region Laterality Modality Device Interroga tion 11/28/2024 12:3 8 AM EDT Impressions 12/03/2024 12:25 PM EDT Normal Remote: No Events * Normal Device Function * Alerts or events: None * Battery: OK, 10.08 yrs * Sensing, impedance and thresholds reviewed * Programmed parameters reviewed * Presenting rhythm reviewed * Heart Rate Histograms reviewed * No significant changes noted Narrative Procedure Note Eduin Oneill MD - 12/04/2024 IMPRESSION: Normal Remote: No Events * Normal Device Function * Alerts or events: None * Battery: OK, 10.08 yrs * Sensing, impedance and thresholds reviewed * Programmed parameters reviewed * Presenting rhythm reviewed * Heart Rate Histograms reviewed * No significant changes noted Eduin Oneill MD CV IMPLANTABLE CARDIAC DEVICE PROCEDURES Final Result * CARDIAC DEVICE CHECK- IN CLINIC- [facility] (11/27/2024 2:09 PM EDT) Date Time Interrogation Session [id number] CV DEVICE CHECK Implantable Pulse Generator Associate Store Leader MDT CV DEVICE CHECK Implantable Pulse Generator Type IPG CV DEVICE CHECK Implantable Pulse Generator Model Tosha XT SR MRI CV DEVICE CHECK Implantable Pulse Generator Serial Number [id number] CV DEVICE CHECK Implantable Pulse Generator Implant Date 20211022 CV DEVICE CHECK Battery Status Middle of Service CV DEVICE CHECK [place] Statistic RV Percent Paced 100.00 CV DEVICE CHECK Lead Channel Sensing Intrinsic Amplitude 2.400 CV DEVICE CHECK Lead Channel Setting Sensing Sensitivity 0.90 CV DEVICE CHECK Lead Channel Impedance Value 437 CV DEVICE CHECK Lead Channel Pacing Threshold Amplitude 0.750 CV DEVICE CHECK Lead Channel Pacing Threshold Pulse Width 0.4 CV DEVICE CHECK Lead Channel RV Pacing Threshold Date 2024-11-27 CV DEVICE CHECK Lead Channel Setting Pacing Amplitude 2.000 CV DEVICE CHECK Lead Channel Setting Pacing Pulse Width 0.4 CV DEVICE CHECK [place] Setting Mode (NBG Code) VVIR CV DEVICE CHECK [place] Setting Lower Rate Limit 70 CV DEVICE CHECK [place] Setting Maximum Sensor Rate 120 CV DEVICE CHECK Zone Setting Type Category VT CV DEVICE CHECK Zone Setting Status Monitor CV DEVICE CHECK Zone ID 5 CV DEVICE CHECK Date of Service 2024-12-06 CV DEVICE CHECK Anatomical Region Laterality Modality Device Interroga tion 11/27/2024 Impressions 12/03/2024 12:25 PM EDT Normal In-Office: No Events * Normal Device Function * Alerts or events: None * Battery: MOS, 9.9 years * Sensing, impedance and thresholds reviewed and tested * Presenting Rhythm: SWIMMING PROFESSOR 85 bpm * No R waves @ VVI 30 bpm * Heart Rate Histograms reviewed * Pacing and Detection Parameters were evaluated Narrative Procedure Note Eduin Oneill MD - 12/04/2024 IMPRESSION: Normal In-Office: No Events * Normal Device Function * Alerts or events: None * Battery: MOS, 9.9 years * Sensing, impedance and thresholds reviewed and tested * Presenting Rhythm: SWIMMING PROFESSOR 85 bpm * No R waves @ VVI 30 bpm * Heart Rate Histograms reviewed * Pacing and Detection Parameters were evaluated us Order Referral Cardiovascular CV IMPLANTABLE CAR DIAC DEVICE PROCEDURES Final Result * ECG 12 lead (11/21/2024 9:26 AM EDT) Pathologist [facility] Ventricular Rate ECG 78 BPM GEMUSE Atrial Rate 394 BPM GEMUSE QRS Duration 146 ms GEMUSE Q-T Interval 416 ms GEMUSE QTc 474 ms GEMUSE R [place] 82 degrees GEMUSE T [place] 83 degrees GEMUSE ECG Interpretation Ventricular-pa luz maria rhythm When compared with ECG of 16-MAY-2024 13:13, There are no significant changes. Confirmed by Milagro PULIDO YUFENG ([id number]) on 11/21/2024 11:05:00 AM GEMUSE 11/21/2024 8:28 AM EDT 11/21/2024 11:05 AM EDT Melanie Saravia NP ECG ORDERABLES Edited Result - Final GEMUSE * Annual BMP Blood Test (03/24/2022) [facility] Annual BMP Blood Test ABSTRACTED Historical Provider HEALTH MAINTENANCE Final Result from Last 3 Months or Most Recently Relevant to Health Maintenance Insurance MEDICARE MEDICAID - [place] Advance Directives Documents on File Type Date Recorded Patient Private Duty Aide Expl anation Health Care Decision (hx) 12/22/2021 HE ALTH CARE PROXY Health Care Decision (hx) 12/22/2021 HE ALTH CARE PROXY Health Care Decision (hx) 12/22/2021 HE ALTH CARE PROXY Health Care Decision (hx) 12/22/2021 HE ALTH CARE PROXY Health Care Decision (hx) 10/25/2021 AD BREWSTER DIRECTIVE Health Care Decision (hx) 10/25/2021 AD BREWSTER DIRECTIVE Health Care Decision (hx) 10/25/2021 AD BREWSTER DIRECTIVE Health Care Decision (hx) 10/25/2021 AD BREWSTER DIRECTIVE Health Care Decision (hx) 2019 AD BREWSTER DIRECTIVE Health Care Decision (hx) 2019 AD BREWSTER DIRECTIVE Health Care Decision (hx) 2019 AD BREWSTER DIRECTIVE Health Care Decision (hx) 2019 AD BREWSTER DIRECTIVE Health Care Decision (hx) 2019 AD BREWSTER DIRECTIVE Health Care Decision (hx) 2019 AD BREWSTER DIRECTIVE Health Care Decision (hx) 2019 AD BREWSTER DIRECTIVE Health Care Decision (hx) 2019 AD BREWSTER DIRECTIVE Health Care Decision (hx) 2019 AD BREWSTER DIRECTIVE Health Care Decision (hx) 2019 AD BREWSTER DIRECTIVE Health Care Decision (hx) 12/20/2016 AD BREWSTER DIRECTIVE Health Care Decision (hx) 12/20/2016 AD BREWSTER DIRECTIVE Health Care Decision (hx) 12/20/2016 AD BREWSTER DIRECTIVE Health Care Decision (hx) 12/20/2016 AD BREWSTER DIRECTIVE Health Care Decision (hx) 12/20/2016 AD BREWSTER DIRECTIVE Health Care Decision (hx) 12/20/2016 AD BREWSTER DIRECTIVE Health Care Decision (hx) 12/20/2016 AD BREWSTER DIRECTIVE Health Care Decision (hx) 12/20/2016 AD BREWSTER DIRECTIVE Health Care Decision (hx) 12/20/2016 AD BREWSTER DIRECTIVE Health Care Decision (hx) 12/20/2016 AD BREWSTER DIRECTIVE Health Care Decision (hx) 12/31/2013 AD BREWSTER DIRECTIVE Health Care Decision (hx) 12/31/2013 AD BREWSTER DIRECTIVE Health Care Decision (hx) 12/31/2013 AD BREWSTER DIRECTIVE Health Care Decision (hx) 12/31/2013 AD BREWSTER DIRECTIVE Health Care Decision (hx) 12/31/2013 AD BREWSTER DIRECTIVE Health Care Decision (hx) 12/31/2013 AD BREWSTER DIRECTIVE Health Care Decision (hx) 12/31/2013 AD BREWSTER DIRECTIVE Health Care Decision (hx) 12/31/2013 AD BREWSTER DIRECTIVE Health Care Decision (hx) 12/31/2013 AD BREWSTER DIRECTIVE Health Care Decision (hx) 12/31/2013 AD BREWSTER DIRECTIVE Health Care Decision (hx) 03/20/2013 AD BREWSTER DIRECTIVE Health Care Decision (hx) 03/20/2013 AD BREWSTRE DIRECTIVE Health Care Decision (hx) 03/20/2013 AD BREWSTER DIRECTIVE Health Care Decision (hx) 03/20/2013 AD BREWSTER DIRECTIVE Health Care Decision (hx) 03/20/2013 AD BREWSTER DIRECTIVE Health Care Decision (hx) 03/20/2013 AD BREWSTER DIRECTIVE Health Care Decision (hx) 03/20/2013 AD BREWSTER DIRECTIVE Health Care Decision (hx) 03/20/2013 AD BREWSTER DIRECTIVE Health Care Decision (hx) 03/20/2013 AD BREWSTER DIRECTIVE Health Care Decision (hx) 03/20/2013 AD BREWSTER DIRECTIVE Care Teams Applicator Sprayer Relationship Specialty Start Date End Date Susan Johnson MD [address] [place] [id number] PCP - General Internal Medicine 02/24/21
== END 2025-01-23 10:56 | disposition home or self-care (01) ==
LOC: HO.10HDL 10:55
PROVIDERS: Visit Provider Internal Medicine
DX: I13.0 Hypertensive heart and chronic kidney disease with heart failure and stage 1 through stage 4 chronic kidney disease, or unspecified chronic kidney disease (principal); N18.30 Chronic kidney disease, stage 3 unspecified; I50.9 Heart failure, unspecified; M54.50 Low back pain, unspecified; R42 Dizziness and giddiness; I48.91 Unspecified atrial fibrillation; E78.5 Hyperlipidemia, unspecified; E21.3 Hyperparathyroidism, unspecified; J44.9 Chronic obstructive pulmonary disease, unspecified; Z79.01 Long term (current) use of anticoagulants; Z79.899 Other long term (current) drug therapy
CPT/HCPCS: 36415; 80053; 82306; 82607; 82728; 82746; 83036; 83540; 83735; 83970; 84443; 85025; 96127; 99212

== ENCOUNTER 2025-02-12 10:28 | Outpatient (REF) | payer MEDICARE, MEDICAID, SELFPAY ==
--- NOTE | ~2025-02-12 | XR_ITS ---
EXAMINATION: XR LUMBOSACRAL SPINE CLINICAL INFORMATION: M54.50 - Low back pain, unspecified COMPARISON: None available. TECHNIQUE: AP and lateral views. FINDINGS: Multilevel marginal osteophyte formation and endplate sclerosis subchondral cyst formation and decreased intervertebral disc height and syndesmophyte formation throughout the axial skeleton. S-shaped curvature of the thoracolumbar spine with a dextroconvex morphology apex at L2-3. Grade 1 anterolisthesis at L4-5. No lytic or blastic lesions. Osteopenia versus osteoporosis. Vascular calcifications, aorta. XR/XR lumbar spine 2-3V IMPRESSION: Multilevel thoracolumbar spondylosis resulting in grade 1 anterolisthesis at L4-5. Dextroconvex scoliosis. Electronically signed by: Angelito Raphael MD 02/12/2025 11:17 AM CJ PERDUE
== END 2025-02-12 10:29 | disposition home or self-care (01) ==
LOC: HO.XRAY 10:28
PROVIDERS: PCP Internal Medicine; Visit Provider Internal Medicine
DX: M54.50 Low back pain, unspecified (principal)
CPT/HCPCS: 72100

== ENCOUNTER → 2025-02-12 10:35 | Outpatient (BNV) | payer MEDICARE, MEDICAID, SELFPAY | PROVIDERS: PCP Internal Medicine; Visit Provider Radiology Diagnostic Radiology | DX: M47.815 Spondylosis without myelopathy or radiculopathy, thoracolumbar region (principal); M41.86 Other forms of scoliosis, lumbar region | CPT/HCPCS: 72100 ==

== ENCOUNTER 2025-02-17 12:23 | Outpatient (REF) | payer MEDICARE, MEDICAID, SELFPAY ==
--- NOTE | ~2025-02-17 | MM_ITS ---
EXAMINATION: DXA BONE DENSITY EXTREMITY HISTORY: Z78.0 - Asymptomatic menopausal state TECHNIQUE: Revelens Dual energy absorptiometry (DEXA) of the lumbar spine, total left hip, left femoral neck and left forearm was performed. COMPARISON: None FINDINGS: The bone mineral density of the lumbar spine is 1.413 g/cm2, corresponding to a T-score of 1.9, and a Z-score of 2.8. This is indicative of normal bone mineral density. The bone mineral density of the left total hip is 0.977 g/cm2, corresponding to a T-score of -0.2, and a Z-score of 0.4. This is indicative of normal bone mineral density. The bone mineral density of the left femoral neck is 0.788 g/cm2, corresponding to a T-score of -1.8, and a Z-score of -0.9. This is indicative of osteopenia. The bone mineral density of the left forearm is 0.883 g/cm2, corresponding to a T-score of 0.1, and a Z-score of 1.7. This is indicative of normal bone mineral density. FRACTURE RISK: The FRAX index suggests a ten year probability of major osteoporotic fracture of 5.8%, and of hip fracture 1.4%. MM/XR DEXA appendicular skeleton IMPRESSION: Based on bone mineral density, and according to World Health Organization (WHO) criteria, the diagnosis is consistent with osteopenia based on lowest T score of -1.8 and the left femoral neck. Treatment Recommendations: NOF guidelines recommend consideration for treatment in postmenopausal women and men age 50 and older presenting with the following: -A hip or vertebral (clinical or morphometric) fracture. -T-score less than or equal to -2.5 at the femoral neck or spine after appropriate evaluation to exclude secondary causes. -Low bone mass at the hip or spine and a 10-year fracture probability by FRAX of greater than or equal to 3% for hip fracture or greater than or equal to 20% for major osteoporotic fracture based on the [place] adapted WHO algorithm. Other Recommendations: All treatment decisions require clinical judgment and consideration of individual patient factors, including patient preferences, comorbidities, previous drug use, risk factors not captured in the FRAX model (e.g. frailty, falls, vitamin D deficiency, increased bone turnover, interval significant decline in bone density) and possible under or overestimation of fracture risk by FRAX. Additional medical evaluation for secondary cause of low bone mineral density may be appropriate. FUTURE SCAN RECOMMENDATION: People with diagnosed cases of osteoporosis or at high risk for fracture should have regular bone mineral density tests. For patients eligible for Medicare, routine testing is allowed once every 2 years. The testing frequency can be increased to one year for patients who have rapidly progressing disease, those who are receiving or discontinuing medical therapy to restore bone mass, or have additional risk factors. Statistically, 68% of repeat scans fall within 1 SD (+/- 0.010 g/cm2 for AP spine L1-L4) and 1 SD (+/- 0.012 g/cm2 for femur total) FRAX is a trademark of the [employer]'s [place] for Metabolic Bone Disease, a World Health Organization (WHO) Collaborating Center. Electronically signed by: Khushi Craven MD 02/17/2025 05:01 PM CJ PERDUE
--- OUTSIDE RECORDS SUMMARY | 2025-02-17 17:55 | XMS_ITS | Encounter Summary ---
Author Organization [facility] Address [address] [place] [address] Care Team Providers Care Blindmaker Name Role Phone Susan Johnson MD Primary Care Provider +1- [phone] Reason for Visit * Reason Onset Date Comments Med Refill 02/13/2025 Encounter Details Date Type Department Care Team (Late st Contact Info) Description 02/13/2025 Telephone [facility] [address] [facility] [address] [place] [address] Sarahy Pulido MD [address] [place] [address] [place] [address] Social History Tobacco Use Types Packs/Day Years Used Date Smoking Tobacco: Never Smokeless Tobacco: Never Alcohol Use Standard Drinks/Week Comments Never 0 (1 standard drink = 0.6 oz pur e alcohol) Comments Unknown Sex and Gender Information Value Date Recorded Sex Assigned at Not on file Legal Sex Female 5:16 PM EST Gender Identity Not on file Sexual Orientation Not on file documented as of this encounter Ordered Prescriptions Prescription Sig Dispense Quantity Refills Last Filled Start Date End Date amLODIPine (NORVASC) 10 mg tablet Take 1 tablet (10 mg total) by mouth 1 (one) time each day. 90 tablet 3 02/13/2025 documented in this encounter Progress Notes * Ying Spaulding RN - 02/13/2025 1:21 PM EST ATIF 11/21/24 [facility] 10/2024 BMP Refilled Amlodipine 10 mg qd #90 3 rf Patient aware. * Regulo Torres - 02/13/2025 9:55 AM EST Patient is requesting refill on amlodipine 10mg, take one tab once a day. carolyn Ramonw , [facility]. documented in this encounter Plan of Treatment Upcoming Encounters Date Type Department Care Team (Late st Contact Info) Description 05/22/2025 1:10 PM EDT Office Visit [facility] [address] [facility] [address] [place] [address] Melanie Saravia, HILLARY [address] [place] [address] [place] [id number] 11/27/2025 1:00 PM EDT Ancillary Procedure [facility] - [facility] [address] [facility] [address] [place] [address] documented as of this encounter Visit Diagnoses Not on filedocumented in this encounter Discontinued Medications Medication Sig Discontinue Reason Start Date End Da te amLODIPine (NORVASC) 10 mg tablet Take 1 tablet (10 mg total) by mouth 1 (one) time each day. Reorder 05/17/2024 02/13/2025 documented as of this encounter Care Teams Blindmaker Relationship Specialty Start Date End Date Susan Johnson MD [address] [place] [address] PCP - General Internal Medicine 02/24/21 documented as of this encounter
--- OUTSIDE RECORDS SUMMARY | 2025-02-17 17:55 | XMS_ITS | Clinical Summary ---
Author Organization [address] [place] [address] Address [address] [place] [address] Phone Care Team Providers Care Net Wpf Developer Name Role Phone Susan Johnson MD Primary Care Provider +1- [phone] Allergies Active Allergy Reactions Criticality Noted Date [...] into the lungs 4 times daily. Active ketorolac (ACULAR) 0.5 % ophthalmic solution 1 drop 4 (four) times a day. Active metoprolol succinate (TOPROL-XL) 50 mg 24 hr tablet TAKE 1 TABLET BY MOUTH DAILY 90 tablet 1 09/03/19 25 Active rosuvastatin (CRESTOR) 5 mg tablet Take 1 tablet (5 mg total) by mouth 1 (one) time each day. 90 tablet 1 01/02/20 25 Active amLODIPine (NORVASC) 10 mg tablet Take 1 tablet (10 mg total) by mouth 1 (one) time each day. 90 tablet 3 02/14/20 25 Active amLODIPine (NORVASC) 10 mg tablet Take 1 tablet (10 mg total) by mouth 1 (one) time each day. 90 tablet 2 05/18/19 25 025 Discontin ued(Reord er) Active Problems [...] Continue with rosuvastatin as prescribed. Atrial tachycardia 12/08/2021 CHB (complete heart block) 12/08/2021 Fatigue 07/05/2021 AUREA (obstructive sleep apnea) 07/05/2021 PAC (premature atrial contraction) 07/05/2021 Palpitations 01/14/2021 Congestive heart failure 11/26/2020 Overview (02/12/2024): Last Assessment & Plan: [...] amlodipine and metoprolol as prescribed. Myocardial infarction 11/26/2020 Atrial fibrillation 07/09/2020 Overview (02/12/2024): Last Assessment & Plan: [...] on warfarin for stroke risk reduction for [id number] score of 8. EKG done in the office today shows ventricular paced rhythm with underlying atrial fibrillation at a well-controlled rate of 78 bpm. Continue current medical therapy with metoprolol as prescribed. Assessment & Plan (05/16/2024 2:13 PM EDT): Patient has history of longstanding atrial fibrillation status post AV kelsey ablation with an RV single-lead pacemaker implantation. She has a [id number] score of 8, on warfarin for stroke [...] Encounters Date Type Department Care Team Description 02/13/2025 Telephone [facility] [address] [place] [address] Sarahy Pulido MD 01/07/2025 9:50 AM EST Lab Draw Station - [address] [facility] [address] [facility] [place] [address] Hyperlipidemia, unspecified hyperlipidemia type 01/06/2025 Telephone [facility] [address] [place] [address] Sarahy Pulido MD 12/04/2024 1:25 PM EDT Ancillary Procedure [facility] - [address] [place] [address] 11/27/2024 1:30 PM EDT Ancillary Procedure [facility] - [address] [place] [address] Encounter for adjustment or management of cardiac device 11/21/2024 8:40 AM EDT Office Visit [facility] - [address] [place] [address] Melanie Saravia NP Longstanding persistent [...] history of cardiovascular disease Chronic renal impairment DX:Electronic Warfare Technical arin renal impairment COPD, mild (CMS/HCC V24, [...] Description 05/22/2025 1:10 PM EDT Office Visit [facility] [address] [facility] [address] [place] [address] Melanie Saravia NP [address] [place] [address] [place] [address] 11/27/2025 1:00 PM EDT Ancillary Procedure [facility] - [facility] [address] [facility] [address] [place] [address] Health Maintenance Due Date Last Done Comments [...] 02/18/2015 COVID-19 Vaccine (9 - Pfizer risk season) 2025 12/01/2024, 06/09/2024, 11/19/2023, Additional history exists Cholesterol [...] this topic Medical Devices Implanted Type Area Director Of Nursing Device Identifier Shelf Expiration Date Model / Serial / Lot Medt-Card Lydia Xt Sr Mri [id number] Implanted: (Quantity not on file) Cardiac Pacemaker [employer] - CARDIAC RHYTH-CRDM TOSHA XT SR MRI [id number] / [id number] / Medt-Card Lydia Xt Sr Mri [id number] Implanted: (Quantity not on file) Cardiac Pacemaker [employer] - CARDIAC RHYTH-CRDM TOSHA XT SR MRI / [id number] / Procedures Procedure Name Priority Date/Time Associated [...] to direct LDL (01/07/2025 9:51 AM EST) Cholesterol 152 0 - 200 mg/dL LAB CHEMISTRY METHOD 01/07/2025 2:20 PM [facility] Triglycerides 86 0 - 150 mg/dL LAB CHEMISTRY METHOD 01/07/2025 2:20 PM [facility] HDL 67 >=40 mg/dL LAB CHEMISTRY METHOD 01/07/2025 2:20 PM [facility] LDL Calculated 68 0 - 100 mg/dL LAB CHEMISTRY METHOD 01/07/2025 2:20 PM [facility] Comment:Estimated LDL Calcul ated using equation: Total cholesterol - HDL cholesterol - (Triglycerides/5) VLDL Cholesterol George 17.2 mg/dL LAB CHEMISTRY METHOD 01/07/2025 2:20 PM [facility] Non HDL Chol. (LDL+VLDL) 85 <145 mg/dL LAB CHEMISTRY METHOD 01/07/2025 2:20 PM [facility] Chol/HDL Ratio 2.3 0.0 - 4.4 LAB CHEMISTRY METHOD 01/07/2025 2:20 PM [facility] Blood Venous blood specimen / Unknown Venipuncture / Unknown 01/07/2025 9:51 AM EST 01/07/2025 11:22 AM EST us Sarahy Pulido MD LAB BLOOD ORDERABLES Final Resul t [facility] [address] [place] [address], * Cardiac device check - Remote- MUR[facility] (12/04/2024 1:24 PM EDT) Date Time Interrogation Session [id number] CV DEVICE CHECK Type Interrogation Session Remote CV DEVICE CHECK Implantable Pulse Generator Director Of Nursing MDT CV DEVICE CHECK Implantable Pulse Generator Type IPG CV DEVICE CHECK Implantable Pulse Generator Model Tosha XT SR MRI [id number] CV DEVICE CHECK Implantable Pulse Generator Serial Number [id number] CV DEVICE CHECK Implantable Pulse Generator Implant Date 20211022 CV DEVICE CHECK Battery Remaining Longevity 121.0 CV DEVICE CHECK Battery Voltage 3.020 CV D EVICE CHECK Battery BUSINESS ADMINISTRATION TEACHER Trigger 2.625 CV DEVICE CHECK Battery Status [...] Result * CARDIAC DEVICE CHECK- [place] [facility] (11/27/2024 2:09 PM EDT) Date Time Interrogation Session [id number] CV DEVICE CHECK Implantable Pulse Generator Director Of Nursing MDT CV DEVICE CHECK Implantable Pulse Generator Type IPG CV DEVICE CHECK Implantable Pulse Generator Model Lydia XT SR MRI CV DEVICE CHECK Implantable Pulse Generator Serial Number [id number] CV DEVICE CHECK Implantable Pulse Generator Implant [...] thresholds reviewed and tested * Presenting Rhythm: PROJECT INTERN 85 bpm * No R waves @ VVI 30 bpm * Heart Rate Histograms reviewed * Pacing and Detection Parameters were evaluated Narrative Procedure Note Eduin Oneill MD - 12/04/2024 IMPRESSION: Normal In-Office: No Events * Normal Device Function * Alerts or events: None * Battery: MOS, 9.9 years * Sensing, impedance and thresholds reviewed and tested * Presenting Rhythm: PROJECT INTERN 85 bpm * No R waves @ VVI 30 bpm * Heart Rate Histograms reviewed * Pacing and Detection Parameters were evaluated us Order Referral Cardiovascular CV IMPLANTABLE CAR DIAC DEVICE PROCEDURES Final Result * ECG 12 lead (11/21/2024 9:26 AM EDT) Pathologist [facility] Ventricular Rate ECG 78 BPM GEMUSE Atrial Rate 394 BPM GEMUSE QRS Duration 146 ms GEMUSE Q-T Interval 416 ms GEMUSE QTc 474 ms GEMUSE R [place] 82 degrees GEMUSE T [place] 83 degrees GEMUSE ECG Interpretation Ventricular-pa luz maria rhythm When compared with ECG of 16-MAY-2024 13:13, There are no significant changes. Confirmed by Milagro PULIDO YUFENG ([id number]) on 11/21/2024 11:05:00 AM GEMUSE 11/21/2024 8:28 AM EDT 11/21/2024 11:05 AM EDT Melanie Saravia PUBLIC RELATIONS OFFICER ECG ORDERABLES Edited Result - Final GEMUSE * Annual BMP Blood Test (03/24/2022) Pathologist [facility] Annual BMP Blood Test ABSTRACTED Historical Provider HEALTH MAINTENANCE Final Result from Last 3 Months or Most Recently Relevant to Health Maintenance Insurance MEDICARE [place]ICAID - [place] Advance Directives Documents on File Type Date Recorded Patient Cmm Inspector Expl anation Health Care Decision (hx) 12/22/2021 [...] DIRECTIVE Health Care Decision (hx) 12/20/2016 AD BRWESTER DIRECTIVE Health Care Decision (hx) 12/31/2013 AD [...] (hx) 03/20/2013 AD BREWSTER DIRECTIVE Care Teams Net Wpf Developer Relationship Specialty Start Date End Date Susan Johnson MD [address] [place] [address] PCP - General Internal Medicine 02/24/21
== END 2025-02-17 12:24 | disposition home or self-care (01) ==
LOC: HO.MAMMO 12:23
PROVIDERS: PCP Internal Medicine; Visit Provider Internal Medicine
DX: E21.3 Hyperparathyroidism, unspecified (principal); Z78.0 Asymptomatic menopausal state
CPT/HCPCS: 77081

== ENCOUNTER → 2025-02-17 13:00 | Outpatient (BNV) | payer MEDICARE, MEDICAID, SELFPAY | PROVIDERS: PCP Internal Medicine; Visit Provider Radiology Diagnostic Radiology | DX: E28.39 Other primary ovarian failure (principal) | CPT/HCPCS: 77081 ==

== ENCOUNTER 2025-02-28 12:11 | Outpatient (AMB) | payer MEDICARE, MEDICAID, SELFPAY ==
--- OUTSIDE RECORDS SUMMARY | 2025-02-28 12:14 | XMS_ITS | Encounter Summary ---
Author Organization [facility] Address [address] [place] [address] Phone Care Team Providers Care Biblical Languages Professor Name Role Phone Susan Johnson MD Primary Care Provider +1- [phone] Encounter Details Date Type Department Care Team (Late st Contact Info) Description 06/10/2021 Documentation Only [facility] [address] [place] [address] Manny Boateng MD [address] [place] [address] [place] [address] Social History Tobacco Use Types [...] Visit [facility] [address] [place] [address] Manny Boateng MD [address] [place] [address] [place] [address] documented as of this encounter Visit Diagnoses Not on filedocumented in this encounter Care Teams Biblical Languages Professor Relationship Specialty Start Date End Date Susan Johnson MD [address] [place], [place] PCP - General 03/16/20 documented as of this encounter
--- OUTSIDE RECORDS SUMMARY | 2025-02-28 12:14 | XMS_ITS | Encounter Summary ---
Author Organization [facility] Address PO [facility] [address] [place] [address] Phone Care Team Providers Care Cloth Folder Machine Name Role Phone Susan Johnson MD Primary Care Provider +1- [phone] Encounter Details Date Type Department Care Team (Late st Contact Info) Description 01/23/2025 Documentation Only [facility] [address] [facility] [facility] [place] [address] Stephanie RodriguezFarson, [place] [address] [place] [address] Social History Tobacco Use Types Packs/Day Years [...] Visit [facility] [address] [facility] [place] [address] Manny Boateng MD [address] [facility] [place] [address] documented as of this encounter Visit Diagnoses Not on filedocumented in this encounter Care Teams Cloth Folder Machine Relationship Specialty Start Date End Date Susan Johnson MD [address] [place], [place] PCP - General 03/16/20 documented as of this encounter
--- OUTSIDE RECORDS SUMMARY | 2025-02-28 12:14 | XMS_ITS | Clinical Summary ---
Author Organization [facility], Address [address] [place] [address] [place] [address] Phone Care Team Providers Care Community Recreation Programmer Name Role Phone Susan Johnson MD Primary Care Provider +1- [phone] Allergies Active Allergy Reactions Criticality Noted Date [...] to type 2 diabetes mellitus 0 04/07/2020 Encounters Date Type Department Care Team Description 02/13/2025 Telephone [facility] [address] [place] [address] Rubi Rodriguez MA 01/23/2025 Documentation Only [facility] [address] [place] [address] Rubi Rodriguez MA from Last 3 Months Immunizations Immunization Administration Dates Next Due Influenza [...] Visit [facility], [address] [facility] [place] [address] Manny Boateng MD [address] [facility] [place] [address] Health Maintenance Due Date Last Done Comments [...] age to complete this topic [place] Care Teams Community Recreation Programmer Relationship Specialty Start Date End Date Susan Johnson MD [facility] [place], [place] PCP - General 03/16/20
--- OUTSIDE RECORDS SUMMARY | 2025-02-28 12:14 | XMS_ITS | Encounter Summary ---
Author Organization [facility] Address PO [facility] [address] [place] [address] Phone Care Team Providers Care Arboreal Scientist Name Role Phone Susan Johnson MD Primary Care Provider +1- [phone] Encounter Details Date Type Department Care Team (Late st Contact Info) Description 12/20/2021 Documentation Only [facility] [address] [place] [address] Manny Boateng MD [address] [place] [address] [place] [address] Social History Tobacco Use Types [...] Visit [facility] [address] [place] [address] Manny Boateng MD [address] [place] [address] [place] [address] documented as of this encounter Visit Diagnoses Not on filedocumented in this encounter Care Teams Arboreal Scientist Relationship Specialty Start Date End Date Susan Jhonson MD [address] [place], [place] PCP - General 03/16/20 documented as of this encounter
--- OUTSIDE RECORDS SUMMARY | 2025-02-28 12:14 | XMS_ITS | Encounter Summary ---
Author Organization [facility] Address PO [facility] [address] [place] [address] Phone Care Team Providers Care Shrimp Trawler Captain Name Role Phone Susan Johnson MD Primary Care Provider +1- [phone] Encounter Details Date Type Department Care Team (Late st Contact Info) Description 12/20/2021 Documentation Only [facility] [address] [place] [address] Manny Boateng MD [address] [place] [address] [place] [address] Social History Tobacco Use Types [...] Visit [facility] [address] [place] [address] Manny Boateng MD [address] [place] [address] [place] [address] documented as of this encounter Visit Diagnoses Not on filedocumented in this encounter Care Teams Shrimp Trawler Captain Relationship Specialty Start Date End Date Susan Johnson MD [address] [place], [place] PCP - General 03/16/20 documented as of this encounter
--- OUTSIDE RECORDS SUMMARY | 2025-02-28 12:14 | XMS_ITS | Encounter Summary ---
Author Organization [facility] Address PO [facility] [address] [place] [address] Phone Care Team Providers Care Papier Mache Molder Name Role Phone Susan Johnson MD Primary Care Provider +1- [phone] Encounter Details Date Type Department Care Team (Late st Contact Info) Description 12/20/2021 Documentation Only [facility] [address] [place] [address] Manny Boateng MD [address] [place] [address] [place] [address] Social History Tobacco Use Types [...] Visit [facility] [address] [place] [address] Manny Boateng MD [address] [place] [address] [place] [address] documented as of this encounter Visit Diagnoses Not on filedocumented in this encounter Care Teams Papier Mache Molder Relationship Specialty Start Date End Date Susan Johnson MD [address] [place], [place] PCP - General 03/16/20 documented as of this encounter
--- OUTSIDE RECORDS SUMMARY | 2025-02-28 12:14 | XMS_ITS | Encounter Summary ---
Author Organization [facility] Address [address] [facility] [address] [place] [address] Phone Care Team Providers Care Quality Supervisor Name Role Phone Susan Johnson MD Primary Care Provider [phone]- [phone] Encounter Details Date Type Department Care Team (Late Contact Info) Description 08/12/2020 Orders Only [facility] [address] [facility] [address] [place] [phone] Jignesh Cox MD [address] [facility] [address] [place] [phone] Hypertensive chronic kidney disease, unspecified, with chronic [...] Visit [facility], [address] [place] [phone] Manny Boateng MD [address] [facility] [facility] [address] [place] [address] documented as of this encounter Procedures Procedure [...] 10:21 AM EDT) Magnesium 2.1 (1.6-2.3) mg/dL [facility] Comment: Testing performed or reported by [facility], a Service of [facility], [address] [place] [address] Megha Arauz MD, Used Building Materials Yard Worker [facility]# [id number] Blood specimen (specimen) Venous blood / Unknown 10/21/2020 10:21 AM EDT 10/21/2020 10:22 AM EDT us Jignesh Cox MD LAB BLOOD ORDERABLES Final Resu lt [facility] * PTH, intact (10/21/2020 10:21 AM EDT) PTH, Intact 48 (15-65) PG/ML [facility] Comment: Testing performed or reported by [facility], a Service of [facility], [address] [place] [address] Megha Arauz MD, Used Building Materials Yard Worker CLIA# [id number] Blood specimen (specimen) Venous blood / Unknown 10/21/2020 10:21 AM EDT 10/21/2020 10:22 AM EDT Jignesh Cox MD LAB BLOOD ORDERABLES Final Resu lt Performing Organization Address [facility] Co de Phone Number [facility] * (ABNORMAL) Vitamin D 25 hydroxy (10/21/2020 10:21 AM EDT) Vitamin D, 25-Hydroxy 58.7(H) (20-50) NG/ML [facility] Comment: Testing performed or reported by [facility], a Service of [facility], [address] [place] [address] Megha Arauz MD, Used Building Materials Yard Worker CLIA# [id number] Blood specimen (specimen) Venous blood / Unknown 10/21/2020 10:21 AM EDT 10/21/2020 10:22 AM EDT us Jignesh Cox MD LAB BLOOD ORDERABLES Final Resu lt Performing Organization Address [facility] Co de Phone Number [facility] * Urine Protein / creatinine ratio (10/21/2020 10:21 AM EDT) Protein/Creat ine Ratio Unable to calculate (0-0.2) [facility] Protein, Urine <4 MG/DL [facility] Creatinine, Urine 32.8 MG/DL [facility] Comment: Testing performed or reported by [facility], a Service of [address] [address] Megha Arauz MD, Used Building Materials Yard Worker CLIA# [id number] Urine specimen (specimen) Urine specimen obtained by clean catch procedure / Unknown 10/21/2020 10:21 AM EDT 10/21/2020 10:23 AM EDT us Jignesh Cox MD LAB URINE ORDERABLES Final Resu lt [facility] * (ABNORMAL) Renal function panel (10/21/2020 10:21 AM EDT) Glucose 87 (70-99) MG/DL [facility] BUN 30(H) (8-23) MG/DL [facility] Creatinine 1.5(H) (0.5-1.0) MG/DL [facility] Sodium 143 (133-145) MMOL/L [facility] Potassium 4.5 (3.6-5.2) MMOL/L [facility] Chloride 104 (98-107) MMOL/L [facility] Bicarbonate (CO2) 29 (22-29) MMOL/L [facility] Anion Gap 10 (4-17) [facility] Albumin 4.1 (3.4-4.8) GM/DL [facility] Calcium 10.0 (8.6-10.5) MG/DL [facility] Phosphorus, Serum 3.4 (2.5-4.5) MG/DL [facility] Est GFR Non 36 ML/MIN/1.7 3 M2 [facility] Comment: Creatinine based estimated glomerular filtration rate (eGFR) is calculated using the Chronic Kidney Disease Epidemiology Collaboration (CKD-EPI). The CKD-EPI creatinine equation has not been validated in children (<18 years), women or in some racial or ethnic subgroups other than Caucasians and Americans. EST GFR 42 ML/MIN/1.7 3 M2 [facility] Comment: Creatinine based estimated glomerular filtration rate (eGFR) is calculated using the Chronic Kidney Disease Epidemiology Collaboration (CKD-EPI). The CKD-EPI creatinine equation has not been validated in children (<18 years), women or in some racial or ethnic subgroups other than Caucasians and Americans. Testing performed or reported by [facility], a Service of [facility], [address] [place] [address] Megha Arauz MD, Used Building Materials Yard Worker [facility]# [id number] Blood specimen (specimen) Venous blood / Unknown 10/21/2020 10:21 AM EDT 10/21/2020 10:22 AM EDT us Jignesh Cox MD LAB BLOOD ORDERABLES Final Resu lt [facility] documented in this encounter Visit Diagnoses Diagnosis Hypertensive chronic kidney disease, unspecified, with chronic kidney disease stage I through stage IV, or unspecified Stage 3b chronic kidney disease (HCC) documented in this encounter Care Teams Quality Supervisor Relationship Specialty Start Date End Date Susan Johnson MD [address] [place], [place] PCP - General 03/16/20 documented as of this encounter
--- OUTSIDE RECORDS SUMMARY | 2025-02-28 12:14 | XMS_ITS | Encounter Summary ---
Author Organization [facility] Address [address] [place] [address] Phone Care Team Providers Care Cnc Machinist Name Role Phone Susan Johnson MD Primary Care Provider [phone]- [phone] Encounter Details Date Type Department Care Team (Late st Contact Info) Description 06/04/2021 Documentation Only [facility] [address] [place] [phone] Edinson Munoz MD Social History Tobacco Use [...] Visit [facility] [address] [place] [address] Manny Boateng MD [address] [place] [address] [place] [phone] documented as of this encounter Visit Diagnoses Not on filedocumented in this encounter Care Teams Cnc Machinist Relationship Specialty Start Date End Date Susan Johnson MD [address] [place], [place] PCP - General 03/16/20 documented as of this encounter
--- OUTSIDE RECORDS SUMMARY | 2025-02-28 12:14 | XMS_ITS | Clinical Summary ---
Author Organization [address] [place] [address] Address [address] [place] [address] Phone Care Team Providers Care Art Therapist Name Role Phone Susan Johnson MD Primary Care Provider +1- [phone] Allergies Active Allergy Reactions Criticality Noted Date [...] on warfarin for stroke risk reduction for [id number] score of 8. EKG done in the office today shows ventricular paced rhythm with underlying atrial fibrillation at a well-controlled rate of 78 bpm. Continue current medical therapy with metoprolol as prescribed. Assessment & Plan (05/16/2024 2:13 PM EDT): Patient has history of longstanding atrial fibrillation status post AV kelsey ablation with an RV single-lead pacemaker implantation. She has a [id number] score of 8, on warfarin for stroke [...] Type Department Care Team Description 02/13/2025 Telephone [facility] [address] [place] [address] Sarahy Pulido MD 01/07/2025 9:50 AM EST Lab Draw Station - [address] [place] [address] Hyperlipidemia, unspecified hyperlipidemia type 01/06/2025 Telephone [facility] [address] [place] [address] Sarahy Pulido MD 12/04/2024 1:25 PM EDT Ancillary Procedure [facility] [address] [place] [address] from Last 3 Months Surgical History Surgery Date Site/Laterality Comments HYSTERECTOMY PROCEDURE: HISTORICAL HYSTERECTOMY Medical History Medical History Date Comments Essential hypertension DX:Essent ial hypertension Hyperlipidemia DX:Hyperlipidemi a Family history of cardiovascular disease DX:Family history of cardiovascular disease Chronic renal impairment DX:[place]ater arin renal impairment COPD, mild (CMS/HCC V24, [...] arteries (HCC) Peripheral arterial occlusiv e disease (CMS/[facility] V24) DX:Peripheral arterial occlu sive disease (HCC) Hyperparathyroidism ([facility] V24) DX:Hyperparathyroidism (HCC) CKD (chronic kidney disease) [...] Description 05/22/2025 1:10 PM EDT Office Visit [facility] [address] [facility] [address] [place] [address] Melanie Saravia NP [address] [place] [address] [place] [address] 11/27/2025 1:00 PM EDT Ancillary Procedure [facility] [address] [facility] [address] [place] [address] Health Maintenance Due Date Last Done Comments [...] 02/18/2015 COVID-19 Vaccine (9 - Pfizer risk 2024- season) 2025 12/01/2024, 06/09/2024, 11/19/2023, Additional history [...] this topic Medical Devices Implanted Type Area Multicut Line Operator Device Identifier Shelf Expiration Date Model / Serial / Lot Medt-Card Tosha Xt Sr Mri [id number] Implanted: (Quantity not on file) Cardiac Pacemaker [employer] - CARDIAC RHYTH-CRDM TOSHA XT SR MRI [id number] / [id number] / Medt-Card Tosha Xt Sr Mri [id number] Implanted: (Quantity not on file) Cardiac Pacemaker [employer] - CARDIAC RHYTH-CRDM TOSHA XT SR MRI / [id number] / Procedures Procedure Name Priority Date/Time Associated Diagnosis Comments LIPID PANEL WITH REFLEX TO DIRECT LDL Routine 01/07/2025 9:51 AM EST Hyperlipidemia, unspecified hyperlipidemia type CARDIAC DEVICE CHECK- REMOTE- MURJ Routine 12/04/2024 1:24 PM EDT ANNUAL BMP BLOOD TEST Routine 03/24/2022 from Last 3 Months or Most Recently Relevant to Health Maintenance Results * Lipid panel with reflex to direct LDL (01/07/2025 9:51 AM EST) Cholesterol 152 0 - 200 mg/dL LAB CHEMISTRY METHOD 01/07/2025 2:20 PM EST [facility] Triglycerides 86 0 - 150 mg/dL LAB CHEMISTRY METHOD 01/07/2025 2:20 PM EST [facility] HDL 67 >=40 mg/dL LAB CHEMISTRY METHOD 01/07/2025 2:20 PM EST [facility] LDL Calculated 68 0 - 100 mg/dL LAB CHEMISTRY METHOD 01/07/2025 2:20 PM EST [facility] Comment:Estimated LDL Calcul ated using equation: Total cholesterol - HDL cholesterol - (Triglycerides/5) VLDL Cholesterol George 17.2 mg/dL LAB CHEMISTRY METHOD 01/07/2025 2:20 PM EST [facility] Non HDL Chol. (LDL+VLDL) 85 <145 mg/dL LAB CHEMISTRY METHOD 01/07/2025 2:20 PM EST [facility] Chol/HDL Ratio 2.3 0.0 - 4.4 LAB CHEMISTRY METHOD 01/07/2025 2:20 PM EST [facility] Blood Venous blood specimen / Unknown Venipuncture / Unknown 01/07/2025 9:51 AM EST 01/07/2025 11:22 AM EST us Sarahy Pulido MD LAB BLOOD ORDERABLES Final Resul t [facility] [address] [place] [address], * Cardiac device check - Remote- MURJ (12/04/2024 1:24 PM EDT) Date Time Interrogation Session [id number] CV DEVICE CHECK Type Interrogation Session Remote CV DEVICE CHECK Implantable Pulse Generator Multicut Line Operator MDT CV DEVICE CHECK Implantable Pulse Generator Type IPG CV DEVICE CHECK Implantable Pulse Generator Model Tosha XT SR MRI [id number] CV DEVICE CHECK Implantable Pulse Generator Serial Number [id number] CV DEVICE CHECK Implantable Pulse Generator Implant Date 20211022 CV DEVICE CHECK Battery Remaining Longevity 121.0 CV DEVICE CHECK Battery Voltage 3.020 CV D EVICE CHECK Battery CEO AND PRESIDENT Trigger 2.625 CV DEVICE CHECK Battery Status [...] IMPLANTABLE CARDIAC DEVICE PROCEDURES Final Result * Annual BMP Blood Test (03/24/2022) Pathologist [facility] Annual BMP Blood Test ABSTRACTED Historical Provider HEALTH MAINTENANCE Final Result from Last 3 Months or Most Recently Relevant to Health Maintenance Insurance MEDICARE [place]ICAID - [place] Advance Directives Documents on File Type Date Recorded Patient Machine Puller And Laster Expl anation Health Care Decision (hx) 12/22/2021 [...] (hx) 03/20/2013 AD BREWSTER DIRECTIVE Care Teams Art Therapist Relationship Specialty Start Date End Date Susan Johnson MD [address] [place] [address] PCP - General Internal Medicine 02/24/21
--- NOTE | 2025-02-28 12:34 | A.OFFVIS_ITS ---
Vital Signs 02/28/25 12:36 Height 5 ft 2.5 in Weight 163 lb 2.273 oz BMI 29.4 BP 124/66 Blood Pressure Location Rt brachial Position Sitting Pulse 74 Pulse Source Pulse Oximeter Pulse Oximetry (%) 99 Oxygen Delivery Method Room Air Intake Visit Reasons: Hyperparathyroidism Intake Note: NEW Patient presents today to establish care for Hyperparathyroidism: No acute complaints reported at this time. Merchandising Assistant Required: No Accompanied by: Self / Same As Patient Allergies fluticasone (From Flonase) Allergy (Intermediate, Verified 02/28/25 12:38) cough up blood lisinopril Allergy (Intermediate, Verified 02/28/25 12:38) cough up blood losartan Allergy (Intermediate, Verified 02/28/25 12:38) cough up blood Penicillins Allergy (Verified 02/28/25 12:38) Unknown HPI Comments Details: 74 years old female with past medical history of COPD, previous stroke, AFib, AUREA, iron deficiency anemia, congestive heart failure, CKD stage 3, hypertension, seen in the office for initial evaluation and management of hyperp arathyroidism. The consultation is for an elevated parathyroid hormone (PTH) level. There is no personal history of hypercalcemia, and no family history of hypercalcemia or osteoporosis. There is no history of kidney stones. Reports a recent bone density test in February 2025, after which they were advised to increase calcium intake. They have since increased their intake of milk and yogurt. They report feeling different since increasing calcium. They are also conscious of their posture and are performing exercises to improve it. Past medical history includes a stroke in 2013, which resulted in some kidney damage. They also have a history of glaucoma and a pacemaker. They had a hysterectomy at age 36 and did not take hormone replacement therapy. Current medications include a blood thinner (unspecified), vitamin D 2000 IU every other day, and propranolol for the heart. They deny taking steroids like prednisone or hydrocortisone, or medications for acid reflux such as omeprazole. Social history includes being very active. Diet has recently been modified to increase calcium intake, including at least one cup of milk daily and increased yogurt consumption. They are also adding more calcium-rich foods like oranges and tangerines. No known allergies. Physical exam: General: Well appearing. NAD. Neck/Thyroid: Thyroid not palpable, no nodules. CV: RRR, no murmur. No edema. Resp:Lungs clear to auscultation bilaterally Abdomen: Soft, nontender. nondistended Extremities/Neuro: No weakness or tremor of outstretched hands Laboratory Tests 01/23/25 11:00 Sodium 142 Potassium 5.0 BUN 21 H Creatinine 1.11 Estimated GFR 48 Calcium 10.5 H Magnesium 2.6 Albumin 4.7 25-OH Vitamin D Total 48.0 TSH 0.90 PTH Intact 257.9 H DEXA 02/17/25 COMPARISON: None FINDINGS: The bone mineral density of the lumbar spine is 1.413 g/cm2, corresponding to a T-score of 1.9, and a Z-score of 2.8. This is indicative of normal bone mineral density. The bone mineral density of the left total hip is 0.977 g/cm2, corresponding to a T-score of -0.2, and a Z-score of 0.4. This is indicative of normal bone mineral density. The bone mineral density of the left femoral neck is 0.788 g/cm2, corresponding to a T-score of -1.8, and a Z-score of -0.9. This is indicative of osteopenia. The bone mineral density of the left forearm is 0.883 g/cm2, corresponding to a T-score of 0.1, and a Z-score of 1.7. This is indicative of normal bone mineral density. FRACTURE RISK: The FRAX index suggests a ten year probability of major osteoporotic fracture of 5.8%, and of hip fracture 1.4%. IMPRESSION: Based on bone mineral density, and according to World Health Organization (WHO) criteria, the diagnosis is consistent with osteopenia based on lowest T score of -1.8 and the left femoral neck. [facility] Medical History Asymptomatic age-related postmenopausal state Hyperparathyroidism COPD (chronic obstructive pulmonary disease) Stroke Dysarthria, post-stroke Atrial fibrillation Pacemaker Lower back pain AUREA (obstructive sleep apnea) Iron deficiency anemia Congestive heart failure CKD (chronic kidney disease), stage III Primary hypertension Surgical History H/O: hysterectomy Social History Housing: House Patient Tobacco Use Status: Never used Tobacco e-Cigarette/Vaping Use: Never Used Current occupational status: retired Physical Exam Vital Signs: Last Vital Signs Pulse 74 02/28/25 12:36 BP 124/66 02/28/25 12:36 Pulse Ox 99 02/28/25 12:36 Oxygen Delivery Method Room Air 02/28/25 12:36 BMI result Body Mass Index 29.4 Assessment & Plan Assessment & Plan (1) Hyperparathyroidism: Code(s): E21.3 - Hyperparathyroidism, unspecified Category: Medical Plan: Elevated Parathyroid Hormone (PTH) - The elevated PTH level is noted. Her labs showed elevated PTH and normal Ca (Cacium corrected for albumin 9.9), which is concerning for normocalcemic hyperparathyroidism, which is a rare condition. Other causes dietary calcium deficiency, which has recently been addressed, and chronic kidney disease, which can contribute to secondary hyperparathyroidism. There is also a possibility of a lab error, as this has been observed in other patients at this facility. - Investigations planned include repeat laboratory studies to confirm the PTH level and rule out lab error. This will be done at an external lab ([facility] at [address] [place] [address]). The panel will include a 24-hour urine collection for calcium and creatinine, as well as blood work for PTH, calcium, phosphorus, vitamin D, and creatinine. - Lifestyle modifications advised include continuing to increase dietary calcium intake with a target of 2557-7357 mg per day from food and supplements. A handout with a list of calcium-rich foods will be provided. - Follow-up plan includes a review in three months to discuss the results of the repeat labs and determine the next steps in management. - Additional Notes: - Patient education provided regarding the function of the parathyroid glands and their role in calcium regulation. Discussed that if primary hyperparathyroidism is confirmed, the standard of care is typically surgical removal of the overactive gland(s) (parathyroidectomy), as medical management is often suboptimal. Explained that untreated hyperparathyroidism can lead to bone damage, kidney damage from high urinary calcium, and potential cardiac effects from high or low calcium levels. The possibility of a lab error was explained as the rationale for repeating the tests at a different facility. - Instructions for symptom monitoring include monitoring for any new symptoms related to hypercalcemia or hyperparathyroidism. Plan 55 minutes spent reviewing previous records, labs, imaging, education and documenting in the chart Orders: Orders Calcium, 24 Hr Ur Today E21.3 - Hyperparathyroidism, unspecified Creatinine, 24 Hr Group Today E21.3 - Hyperparathyroidism, unspecified Parathyroid Hormone Intact Today E21.3 - Hyperparathyroidism, unspecified Calcium, Ionized Today E21.3 - Hyperparathyroidism, unspecified Comprehensive Met. Panel Today E21.3 - Hyperparathyroidism, unspecified Phosphorus Today E21.3 - Hyperparathyroidism, unspecified Vitamin D 25-OH Total Today E21.3 - Hyperparathyroidism, unspecified Vitamin D 1,25 dihydroxy Today E21.3 - Hyperparathyroidism, unspecified Patient Instructions: Please have blood/urine work up done at [facility] on [facility], [address] [place] [address] 24-Hour Urine Calcium Collection Instructions Purpose: This test measures the amount of calcium excreted in your urine over a 24-hour period. It helps evaluate calcium metabolism and diagnose certain conditions. Supplies Needed: 24-hour urine collection container (provided by the lab or clinic) Urine hat or collection device (optional, for easier collection) Written instructions (this sheet) Instructions: Start the Collection: Choose a day when you can be at home or have easy access to a bathroom. Upon waking up on the first day, urinate and discard this first morning urine. Do not collect this sample. Note the exact time?this is your start time. Collect All Urine: For the next 24 hours, collect all urine you pass into the provided container. Each time you urinate, collect it in a clean container and transfer it to the 24-hour collection jug. Store the collection container in a cool place, preferably in a refrigerator or on ice, during the collection period. Finish the Collection: Exactly 24 hours after your start time, urinate one last time and add this urine to the container. This completes the collection. After Collection: Ensure the lid is tightly closed. Label the container with your name, date, and start/end times. Return the container to the laboratory or your physician?s office as soon as possible after completion. Important Tips: Do not miss any urine during the 24-hour period. If you do, the test may need to be repeated. Do not allow toilet paper, stool, or other materials to get into the urine sample. Continue your usual diet unless instructed otherwise. Some tests may require you to avoid certain foods or medications?follow any additional instructions provided by your physician. Coding Level of Care Code New Pt Level 4 (77602) Add On Problem Visit Only Diagnoses Hyperparathyroidism E21.3
[2025-02-28 12:36] VITALS: BP 124/66; PULSE 74; O2SAT 99; BMI 29.4
== END 2025-02-28 13:29 | disposition home or self-care (01) ==
LOC: HO.ENCR 12:12
PROVIDERS: PCP Internal Medicine; Visit Provider Student in an Organized Health Care Education/Training Program
DX: E21.3 Hyperparathyroidism, unspecified (principal)
CPT/HCPCS: 99204; G2211

== ENCOUNTER → 2025-02-28 12:11 | Outpatient (BNVA) | payer MEDICARE, MEDICAID, SELFPAY | PROVIDERS: PCP Internal Medicine; Visit Provider Student in an Organized Health Care Education/Training Program | DX: E21.3 Hyperparathyroidism, unspecified (principal); Z95.0 Presence of cardiac pacemaker; Z79.01 Long term (current) use of anticoagulants | CPT/HCPCS: 99202 ==